=== PATIENT | male | born 1945 | race Caucasian/White ===

== ENCOUNTER → 2016-08-24 | Day surgery (SDC) | payer OTHER, MEDICARE ==
[~2016-08-24] VITALS: Ht 180.3 cm; Wt 80.7 kg
[~2016-08-24] MED LIST: /PANT40TA OR; ACET65TA PR; ACETYLCHOLINE OPHTH SOLN 1% 2ML As Ordered ONE; ACULAR 0.5% OD; AMLO10TA2 PO; AMLO5TAB OR; BSS with VANC/TOB/EPI for EYE CASES IR ONE; CHLO125TA PO; CHLO25TA PO; CIPR500S PO; COMB0.2S OD; CYCLOPENTOLATE 2% OPHTH SOLN As Ordered ONE; CYCLOPENTOLATE 2% OPHTH SOLN OD ONE; D5W/0.2% SODIUM CHLORIDE 250 ML IV ONE; DICY10EL OR; FLAG500T PO; FLOM5CAP PO; GAS-X PO; HEALON DUET (HEALON 10MG/ML 0.55ML & HEALON ENDOCOAT 30MG/ML 0.85ML) As Ordered ONE; IMODIUM PO; LATA5OPD OU; LIDOCAINE 4% INJ 5 ML AMP OU ONE; LOSA100T36 PO; LOSARTAN/HCTZ PO; MAGN250T11 PO; MIDAZOLAM INJ 2 MG/2 ML VIAL (J2250) As Ordered ONE; NORV5TAB OR; OCUVTAB PO; OFLOXACIN 0.3 % (OCUFLOX) OPTH SOL 5ML As Ordered ONE; OFLOXACIN 0.3 % (OCUFLOX) OPTH SOL 5ML OD ONE; PANT40TA2 PO; PHENYLEPHRINE 2.5% OPHTH SOL 2ML As Ordered ONE; PHENYLEPHRINE 2.5% OPHTH SOL 2ML OD ONE; POTA10TA16 PO; POVIDONE-IODINE 5% OPHTH PREP SOL 30ML As Ordered ONE; PRAV40TA2 PO; PREDFORTE OD; SERT50TA2 OR; SIMV40TA2 OR; SLOWTAB OR; TAMS0.4C2 PO; TOBRAMYCIN INJ 80 MG/2 ML VIAL (J3260) As Ordered ONE; TROPICAMIDE 1% OPHTH SOLN 2 ML As Ordered ONE; TROPICAMIDE 1% OPHTH SOLN 2 ML OD ONE; VITA20002 PO; fentaNYL 100 MCG/2 ML INJECTION (J3010) As Ordered ONE; glaucoma drop OU
[2016-08-24 09:00] VITALS: BP 114/62
--- NOTE | 2016-08-24 10:22 | RO ---
DATE: 08/24/2016 PREPROCEDURE DIAGNOSIS: Glaucoma, right eye. POSTPROCEDURE DIAGNOSIS: Glaucoma, right eye. PROCEDURE: Endocytophotocoagulation, right eye. SURGEON: Theresa Barrera MD MILK TANKER DRIVER: None. ANESTHESIA: COMPLICATIONS: None. DESCRIPTION OF PROCEDURE: Patient was brought to the operating room, laid in supine position. The eye was prepped and draped in a sterile fashion for opthalmic surgery, following which a lid speculum was placed. A sideport incision was made and EndoCoat and Healon were injected into the anterior chamber to visualize the ciliary processes and in the ciliary sulcus. A temporal clear corneal incision was then made with a 2.5 mm keratome. With the help of the EndoProbe on the videoscreen, the ciliary processes were identified and endocyclophotocoagulation was then done 0.25 milliwatts for 280 degrees with good results noted by the shrinkage of the ciliary processes. The probe was removed. Viscoelastic was aspirated. The wound was hydrated. Moxifloxacin was given. No leaks were noted. Lid speculum removed and patient returned to recovery room in stable condition.
== END | disposition home or self-care (01) ==
LOC: M SDC 06:43
PROVIDERS: ATTEND Ophthalmology
DX: H40.10X0 Unspecified open-angle glaucoma, stage unspecified (principal); I10 Essential (primary) hypertension; E78.5 Hyperlipidemia, unspecified; J44.9 Chronic obstructive pulmonary disease, unspecified; Z87.891 Personal history of nicotine dependence; Z79.899 Other long term (current) drug therapy
CPT/HCPCS: 66711; J2250; J3010

== ENCOUNTER → 2016-10-21 | Outpatient (CLI) | payer OTHER, MEDICARE ==
[~2016-10-21] MED LIST changes: -ACETYLCHOLINE OPHTH SOLN 1% 2ML As Ordered ONE; -BSS with VANC/TOB/EPI for EYE CASES IR ONE; -CYCLOPENTOLATE 2% OPHTH SOLN As Ordered ONE; -CYCLOPENTOLATE 2% OPHTH SOLN OD ONE; -D5W/0.2% SODIUM CHLORIDE 250 ML IV ONE; -HEALON DUET (HEALON 10MG/ML 0.55ML & HEALON ENDOCOAT 30MG/ML 0.85ML) As Ordered ONE; -LIDOCAINE 4% INJ 5 ML AMP OU ONE; -MIDAZOLAM INJ 2 MG/2 ML VIAL (J2250) As Ordered ONE; -OFLOXACIN 0.3 % (OCUFLOX) OPTH SOL 5ML As Ordered ONE; -OFLOXACIN 0.3 % (OCUFLOX) OPTH SOL 5ML OD ONE; -PHENYLEPHRINE 2.5% OPHTH SOL 2ML As Ordered ONE; -PHENYLEPHRINE 2.5% OPHTH SOL 2ML OD ONE; -POVIDONE-IODINE 5% OPHTH PREP SOL 30ML As Ordered ONE; -TOBRAMYCIN INJ 80 MG/2 ML VIAL (J3260) As Ordered ONE; -TROPICAMIDE 1% OPHTH SOLN 2 ML As Ordered ONE; -TROPICAMIDE 1% OPHTH SOLN 2 ML OD ONE; -fentaNYL 100 MCG/2 ML INJECTION (J3010) As Ordered ONE
--- NOTE | 2016-10-27 12:37 | REP ---
Thyroid ultrasound: Comparison is 12/07/2015. The thyroid gland is upper normal size. The right lobe measures 4.3 x 1.7 x 1.5 cm. Left lobe measures 4.0 by 2.0 x 120 cm. The isthmus measures 2.5 mm thickness. These measurements are slightly larger than previously but in the normal range. The study is technically difficult because of the thyroid gland very low behind the manubrium. Right lobe: There are three focal lesions in the right lobe. There is a 5.4 mm upper pole cyst. This was 6.2 mm previously). There is a 2.8 mm mid pole nodule (2.8 mm previously). There is a 1.9 mm mid pole nodule (not present previously). On the prior study there was 2.7 mm lower pole nodule, not identified today. Left lobe: There are two tiny upper pole nodules, one measuring 3.8 mm and in the 2.2 mm, not present previously. There is a mid pole nodule measuring 6.7 mm. This was 9.6 mm previously. There is a lower pole 3.8 mm nodule, 5.0 mm previously. There is a lower pole 10.3 mm nodule, 8.7 mm previously. The thyroid parenchyma is otherwise diffusely mildly heterogeneous. Impression: Multiple bilateral thyroid nodules and cysts as described. Signed by Santiago Daniels MD 10/27/2016 12:28 P
== END ==
LOC: M RAD 12:14
PROVIDERS: ATTEND Otolaryngology
DX: R94.6 Abnormal results of thyroid function studies (principal)

== ENCOUNTER → 2017-01-24 | Outpatient (CLI) | payer OTHER, MEDICARE ==
[2017-01-24 12:15] LABS: MEAN CORPUSCULAR HEMOGLOBIN 30.7 pg (27.0-33.0); MEAN CORPUSCULAR HGB CONC 33.6 g/dl (32.0-36.5); MEAN CORPUSCULAR VOLUME 91.6 fl (80.0-96.0); PLATELET COUNT, AUTOMATED 302 10^3/uL (150-450); RED CELL DISTRIBUTION WIDTH 12.9 % (11.5-14.5)
[2017-01-24 12:16] LABS: ADD MANUAL DIFFER YES; DIFF SLIDE NUMBER 137
[2017-01-24 12:48] LABS: ALBUMIN 3.5 GM/DL (3.2-5.2); ALBUMIN/GLOBULIN RATIO 1.06 (1.00-1.93); ALKALINE PHOSPHATASE 73 U/L (45-117); ALT/SGPT 16 U/L (12-78); ANION GAP 5 MEQ/L (8-16); AST/SGOT 14 U/L (15-37); BILIRUBIN,TOTAL 0.5 MG/DL (0.2-1.0); BLOOD UREA NITROGEN 19 MG/DL (7-18); CALCIUM LEVEL 8.9 MG/DL (8.8-10.2); CARBON DIOXIDE LEVEL 34 MEQ/L (21-32); CHLORIDE LEVEL 102 MEQ/L (98-107); CHOLESTEROL LEVEL 175 MG/DL (<200); CREATININE FOR GFR 0.87 MG/DL (0.70-1.30); GLOMERULAR FILTRATION RATE > 60.0 (>42); GLUCOSE, FASTING 101 MG/DL (83-110); POTASSIUM SERUM 4.1 MEQ/L (3.5-5.1); SODIUM LEVEL 141 MEQ/L (136-145); TOTAL PROTEIN 6.8 GM/DL (6.4-8.2); TRIGLYCERIDES LEVEL 65 MG/DL (<150)
[2017-01-24 13:19] LABS: EOSINOPHILS 1 % (0-5)
== END ==
LOC: M LRY 09:06
PROVIDERS: ATTEND Family Medicine
DX: E87.6 Hypokalemia (principal); I10 Essential (primary) hypertension; E78.5 Hyperlipidemia, unspecified

== ENCOUNTER 2017-03-14 07:20 | Observation (INO) | payer OTHER, MEDICARE ==
[~2017-03-14] VITALS: Ht 180.3 cm; Wt 84.3 kg
[2017-03-14] MEDS ORDERED: COMB0.2S OD (07:42)
[2017-03-14] MEDS ORDERED: ESCI5SOL3 PO (07:42)
[2017-03-14] MEDS ORDERED: NS 1,000 ML IV SCH (08:01)
[2017-03-14] MEDS ORDERED: ONDANSETRON 4MG/2ML VIAL (J2405) IV ONE (08:15)
[2017-03-14 08:24] LABS: MEAN CORPUSCULAR HEMOGLOBIN 31.2 pg (27.0-33.0); MEAN CORPUSCULAR HGB CONC 35.1 g/dl (32.0-36.5); PLATELET COUNT, AUTOMATED 274 10^3/uL (150-450); RED CELL DISTRIBUTION WIDTH 12.6 % (11.5-14.5); WHITE BLOOD COUNT 13.9 10^3/uL (4.0-10.0)
[2017-03-14 08:37] LABS: ADD MANUAL DIFFER YES; ADD MORPHOLOGY? YES; BLASTS POS FLAG; DIFF SLIDE NUMBER 142; LEFT SHIFT POS FLAG; POSITIVE MORPH POS FLAG
[2017-03-14 08:43] LABS: ALBUMIN/GLOBULIN RATIO 0.79 (1.00-1.93); ALKALINE PHOSPHATASE 72 U/L (45-117); ALT/SGPT 11 U/L (12-78); ANION GAP 7 MEQ/L (8-16); AST/SGOT 8 U/L (7-37); BILIRUBIN,DIRECT 0.2 MG/DL (0.0-0.2); BILIRUBIN,TOTAL 0.7 MG/DL (0.2-1.0); BLOOD UREA NITROGEN 24 MG/DL (7-18); CALCIUM LEVEL 8.6 MG/DL (8.8-10.2); CARBON DIOXIDE LEVEL 30 MEQ/L (21-32); CHLORIDE LEVEL 99 MEQ/L (98-107); CREATININE FOR GFR 1.16 MG/DL (0.70-1.30); GLOMERULAR FILTRATION RATE > 60.0 (>42); GLUCOSE, FASTING 134 MG/DL (83-110); POTASSIUM SERUM 2.8 MEQ/L (3.5-5.1); SODIUM LEVEL 136 MEQ/L (136-145); TOTAL PROTEIN 6.8 GM/DL (6.4-8.2)
[2017-03-14] MEDS ORDERED: POTASSIUM CHLORIDE 10 MEQ SR TABLET PO ONE ×2 (09:00→18:00)
--- NOTE | 2017-03-14 09:09 | REP ---
Clinical: Acute abdominal pain. Comparison: 10/14/2014. Technique: Upright view of the chest with supine and upright views of the abdomen and pelvis. Findings: Frontal upright view of the chest demonstrates COPD/emphysematous changes with large bullae encompassing the right mid to upper lung zone and bilateral chronic interstitial changes. No acute cardiopulmonary process or free air below the diaphragm to suspect pneumoperitoneum. Supine and upright views of the abdomen and pelvis demonstrate nonspecific bowel gas pattern without obstruction or perforation. No organomegaly. No abnormal calcifications. Skeletal structures normal for age. Impression: Frontal chest demonstrates chronic interstitial changes and COPD. Nonspecific bowel gas pattern. Signed by Camilo Licea MD 03/14/2017 09:00 A
[2017-03-14] MEDS ORDERED: GASTROGRAFIN SOLUTION 30ML (Q9963) PO ONE ×2 (09:25→09:55)
[2017-03-14] MEDS ORDERED: ISOVUE-370 76% 100ML VIAL (Q9967) As Ordered ONE (10:36)
[2017-03-14] MEDS ORDERED: methylPREDNISolone INJ 125 MG/2 ML VIAL (J2930) IV ONE (10:45)
[2017-03-14] MEDS ORDERED: diphenhydrAMINE INJ 50MG/ML VIAL (J1200) IV ONE (10:45)
[2017-03-14] MEDS ORDERED: FAMOTIDINE INJ 20MG/2ML VIAL (S0028) IVP ONE (10:45)
--- NOTE | 2017-03-14 11:18 | REP ---
Clinical: Diffuse acute abdominal pain. Comparison: 10/14/2014. Findings: Mural thickening and perienteric inflammatory changes are identified involving the jejunum along with associated mesenteric adenopathy (images 63 - 110). Findings suggest acute enteritis and correlation/follow-up may be warranted as differential diagnosis may include further pathology including lymphoma and inflammatory bowel disease. Stable 2.5 cm right hepatic cyst. Spleen, pancreas, and left adrenal gland are normal. Stable 2 cm right adrenal adenoma again identified. Kidneys demonstrate chronic symmetric perinephric stranding and bilateral hypodensities suggesting cysts and similar to prior examination. No hydroureteronephrosis or obstructing calculi identified. The patient is status post cholecystectomy. Pelvis demonstrates normal bladder and enlarged prostate gland measuring 5.4 cm maximal transverse diameter. No ascites. No free air. No retroperitoneal adenopathy. Atherosclerotic changes to the aorta and vasculature noted without aortic aneurysm. Focal dilatation to the right common iliac artery remains stable and measures 2 cm maximal diameter. Musculoskeletal structures demonstrate osteopenia and degenerative changes without focal osseous abnormality. Lung bases demonstrate stable chronic fibrosis and interstitial disease. Visualized portions of the heart and pericardium are relatively normal. Impression: 1. Prominence to the jejunum with mural thickening, perienteric stranding and mesenteric lymph nodes. Differential diagnosis includes acute enteritis as well as inflammatory bowel disease and lymphoma. 2. Chronic stable findings including hepatic cyst, right adrenal adenoma, bilateral renal cysts and enlarged prostate gland. Signed by Camilo Licea MD 03/14/2017 11:10 A
--- NOTE | 2017-03-14 13:42 | HPEPDOC ---
[facility] Medical History & Physical Date of Admission Mar 14, 2017 History and Physical ATTENDING: Dr. Waters PCP: Dr Bain CC: Abdominal pain HPI: 71 yo M with a past medical history significant for hypertension, dyslipidemia, GERD, COPD and CLL who states he has been experiencing abdominal pain since last . He reports diarrhea, nausea, vomiting, subjective fever and chills. He has not been able to eat well the past 2 days, he has been trying to drink fluids. Denies any weakness, fatigue, NUNEZ, CP, SOB, cough, palpitations, or changes in bladder habits. Upon presentation to the hospital the patient was found to have abdominal pain, thus the hospitalist team was consulted. PMHx: Hypertension. Follows with ED History of thyroid nodules. Follows with Dr. Chun. GERD Dyslipidemia Glaucoma Macular degeneration BPH Depression COPD History of CLL. Previously followed by Dr. Whitehead. Hypomagnesemia PSHX: Left great toe amputation Cholecystectomy 02/06 EGD/colonoscopy. Dr. Leonardo SOCHX: Resides in: [facility] Marital Status: Kids: 2 Employment: Retired Tobacco use: Quit 6 years ago ETOH: Denies Illicit Drugs: Denies Recent travel: Denies Advanced directives: None FAMHX: Siblings: One twin sister Alive, well Children: Alive, depression, alcohol use Unexpected deaths due to medical reasons: None. ROS: As noted in HPI, otherwise 11pt ROS of systems reviewed and unremarkable. PE: GEN: 71 yoM, appears stated age. Well-nourished, well developed. No acute distress. Alert and oriented x 3. Pleasant, interactive. HEENT: Normocephalic, atraumatic. Pupils are equal, round, and reactive to light. Extraocular movements are intact. No nystagmus appreciated. Sclera are nonicteric. Conjunctiva without injection. Nose midline. EACs both patent BL. No facial asymmetry. Moist mucous membranes. Upper and lower dentures. Pharynx pink and moist, no cobblestoning. Neck supple, trachea midline. No lymphadenopathy or thyromegaly appreciated. CHEST: Regular rate and rhythm, +S1, +S2 LUNGS: Clear to auscultation bilaterally. No wheezes, rales, or rhonchi. Breathing appears symmetric and easy. Patient is speaking in full sentences. No accessory muscle use. ABD: Round, soft, non-tender, non-distended. +Bowel sounds throughout. No rebound or guarding. No costovertebral angle tenderness. EXT: Pulses 2+ bilaterally dorsalis pedis and radial. No lower extremity edema appreciated. SKIN: [place], dry, warm. Capillary refill <2sec. No rashes. NEURO: Alert and oriented x 3. Cranial nerves III-XII are intact. No focal deficits appreciated. AXR: Frontal chest demonstrates chronic interstitial changes and COPD. Nonspecific bowel gas pattern. CT: Abdomen and pelvis 1. Prominence to the jejunum with mural thickening, perienteric stranding and mesenteric lymph nodes. Differential diagnosis includes acute enteritis as well as inflammatory bowel disease and lymphoma. 2. Chronic stable findings including hepatic cyst, right adrenal adenoma, bilateral renal cysts and enlarged prostate gland. A&P: 71 yo M with a past medical history significant for hypertension, dyslipidemia, GERD, COPD and CLL who states he has been experiencing abdominal pain since last . He reports diarrhea, nausea, vomiting, subjective fever and chills. He has not been able to eat well the past 2 days, he has been trying to drink fluids. 1. The patient will be admitted to / for at least [address] Waters's service. Pt is discussed with Dr Grewal. 2. Abdominal pain, nausea, vomiting, diarrhea. Possible enteritis. IV fluids at 100 mL per hour. GI panel pending. Blood cultures pending. Clear liquids. Plan is to hold off antibiotics for now. 3. Hypokalemia. Status post supplementation in the emergency department. Recheck BMP, supplement further if needed. 4. Hypomagnesemia. Patient remains on supplement. Check magnesium level. 5. Hypertension. Hold chlorthalidone. Continue losartan with hold parameters. 5. Dyslipidemia. Continue Pravachol. 6. GERD. Continue PPI. 7. Glaucoma. Continue outpatient regimen of eyedrops. 8. BPH. Continue Flomax. 9. Depression. Continue Lexapro. 10. History of CLL. DVT prophylaxis. The patient is a full code. MED REC PENDING AT THIS TIME. Vital Signs Vital Signs Date Time Temp Pulse Resp B/P (MAP) Pulse Ox O2 Delivery O2 Flow Rate FiO2 03/14/17 12:35 98.7 89 18 148/70 (96) 90 03/14/17 07:20 Room Air Laboratory Data Labs 24H Laboratory Tests 2 03/14/17 08:10: Nucleated Red Blood Cells % (auto) 0.0, Neutrophils 51, Lymphocytes (Manual) 47 , Monocytes (Manual) 2, Platelet Estimate NORMAL, Red Blood Cell Morphology NORMAL, Anion Gap 7L, Glomerular Filtration Rate > 60.0, Lactic Acid Level 1.1, Calcium Level 8.6L, Aspartate Amino Transf (AST/SGOT) 8, Alanine Aminotransferase (ALT/SGPT) 11L, Alkaline Phosphatase 72, Total Bilirubin 0.7, Direct Bilirubin 0.2, Total Protein 6.8, Albumin 3.0L, Albumin/Globulin Ratio 0.79L, Lipase 107 CBC/BMP Laboratory Tests 03/14/17 08:10 Red Blood Count 4.45, Mean Corpuscular Volume 89.0, Mean Corpuscular Hemoglobin 31.2, Mean Corpuscular Hemoglobin Concent 35.1, Red Cell Distribution Width 12.6 Home Medications Scheduled (Combigan 0.2-0.5 %) 1 Kyara Kyara, 1 DROP OD BID (Magnesium Oxide) 400 Mg Cap, 400 MG PO DAILY Aspirin (Aspirin 81) 81 Mg Tab, 81 MG PO DAILY Chlorthalidone (Chlorthalidone) 12.5 Mg Halftab, 12.5 MG PO DAILY [place] Dextrin (Fiber Powder) 1 Pow Pow, 1 TBS PO DAILY Cyanocobalamin (Vitamin B-12 Tr) 2,000 Mcg Tab, 2,000 MCG PO DAILY Escitalopram Oxalate (Lexapro) 5 Mg Tab, 10 MG PO DAILY Losartan Potassium (Losartan Potassium) 100 Mg Tab, 100 MG PO DAILY Magnesium Oxide (Magnesium Oxide) 250 Mg Tab, 250 MG PO DAILY Multivitamins (Ocuvite) 1 Tab Tab, 1 TAB PO DAILY Pantoprazole Sodium (Pantoprazole Sodium) 40 Mg Tab, 40 MG PO DAILY Potassium Chloride (Potassium Chloride ER) 10 Meq Tab, 20 MEQ PO DAILY Potassium Chloride (K-Tab) 10 Meq Tab, 20 MEQ PO DAILY Pravastatin Sod (Pravastatin Sodium) 40 Mg Tab, 40 MG PO DAILY Tamsulosin Hydrochloride (Flomax) 0.4 Mg Cap, 0.4 MG PO QPM Scheduled PRN Ondansetron HCl (Zofran) 4 Mg Tab, 4 MG PO Q8HP PRN for NAUSEA OR VOMITING Allergies Coded Allergies: Valsartan (Verified Adverse Reaction, Mild, EXCESSIVE FATIGUE, 08/24/16) Selina Gupta Mar 14, 2017 13:41
[2017-03-14] MEDS ORDERED: ONDANSETRON 4MG/2ML VIAL (J2405) IV PRN (14:00)
[2017-03-14] MEDS ORDERED: ACETAMINOPHEN TAB 650MG DOSE (2X325MG) PO PRN (14:00)
[2017-03-14] MEDS ORDERED: LEXA5TAB13 PO (14:55)
[2017-03-14] MEDS ORDERED: FIBEPOW11 PO (14:55)
[2017-03-14] MEDS ORDERED: ASPI1TAB PO (14:55)
[2017-03-14] MEDS: PANTOPRAZOLE 40MG TAB (PROTONIX) PO SCH (16:10)
[2017-03-14] MEDS: POTASSIUM CHLORIDE 10 MEQ SR TABLET PO SCH (16:10)
[2017-03-14] MEDS: LOSARTAN 50 MG TAB PO SCH (16:11)
[2017-03-14] MEDS: ASPIRIN 81 MG ENTERIC TAB PO SCH (16:11)
[2017-03-14 17:24] LABS: ANION GAP 8 MEQ/L (8-16); BLOOD UREA NITROGEN 25 MG/DL (7-18); CALCIUM LEVEL 8.1 MG/DL (8.8-10.2); CARBON DIOXIDE LEVEL 27 MEQ/L (21-32); CHLORIDE LEVEL 103 MEQ/L (98-107); CREATININE FOR GFR 0.98 MG/DL (0.70-1.30); GLOMERULAR FILTRATION RATE > 60.0 (>42); GLUCOSE, FASTING 163 MG/DL (83-110); MAGNESIUM LEVEL 1.3 MG/DL (1.8-2.4); POTASSIUM SERUM 2.9 MEQ/L (3.5-5.1); SODIUM LEVEL 138 MEQ/L (136-145)
[2017-03-14 17:40] VITALS: BP 142/67
[2017-03-14] MEDS: ENOXAPARIN 40 MG/0.4 ML SYRINGE (J1650) SC SCH (18:15)
[2017-03-14] MEDS: OCUVITE 1 TAB PO SCH (18:17)
[2017-03-14] MEDS: KCL 10MEQ IN 100ML SWI (KRUN) 10 MEQ in APPROPRIATE DILUENT 1 EA IV SCH ×4 (18:17→19:26)
[2017-03-14] MEDS: ESCITALOPRAM OXALATE 10 MG TAB (LEXAPRO) PO SCH (18:30)
[2017-03-14] MEDS: NS 1,000 ML IV SCH ×2 (18:30→19:26)
[2017-03-14 20:00] VITALS: BP 128/70
[2017-03-14] MEDS: COMBIGAN OPTH OU SCH (20:37)
[2017-03-14] MEDS: PRAVASTATIN 20 MG TAB PO SCH (20:38)
[2017-03-14] MEDS: MAG SULF 1GM/100ML (MAG RUN) 1 GM in APPROPRIATE DILUENT 1 EA IV SCH ×2 (20:38→21:43)
[2017-03-14] MEDS: TAMSULOSIN 0.4 MG CAP PO SCH (20:38)
[2017-03-15] VITALS: BP 124/64
[2017-03-15] MEDS: NS 1,000 ML IV SCH ×2 (06:49→18:29)
[2017-03-15 06:56] LABS: MEAN CORPUSCULAR HEMOGLOBIN 30.3 pg (27.0-33.0); MEAN CORPUSCULAR HGB CONC 33.9 g/dl (32.0-36.5); MEAN CORPUSCULAR VOLUME 89.3 fl (80.0-96.0); PLATELET COUNT, AUTOMATED 261 10^3/uL (150-450); RED CELL DISTRIBUTION WIDTH 12.8 % (11.5-14.5); WHITE BLOOD COUNT 13.6 10^3/uL (4.0-10.0)
[2017-03-15 07:04] LABS: ADD MANUAL DIFFER YES; BLASTS POS FLAG; DIFF SLIDE NUMBER 82; POSITIVE MORPH POS FLAG
[2017-03-15 07:14] LABS: ALBUMIN 2.4 GM/DL (3.2-5.2); ALBUMIN/GLOBULIN RATIO 0.75 (1.00-1.93); ALKALINE PHOSPHATASE 52 U/L (45-117); ALT/SGPT 12 U/L (12-78); ANION GAP 5 MEQ/L (8-16); AST/SGOT 9 U/L (7-37); BILIRUBIN,TOTAL 0.3 MG/DL (0.2-1.0); BLOOD UREA NITROGEN 21 MG/DL (7-18); CALCIUM LEVEL 8.3 MG/DL (8.8-10.2); CARBON DIOXIDE LEVEL 28 MEQ/L (21-32); CHLORIDE LEVEL 106 MEQ/L (98-107); CREATININE FOR GFR 0.82 MG/DL (0.70-1.30); GLOMERULAR FILTRATION RATE > 60.0 (>42); GLUCOSE, FASTING 143 MG/DL (83-110); MAGNESIUM LEVEL 1.9 MG/DL (1.8-2.4); POTASSIUM SERUM 3.3 MEQ/L (3.5-5.1); SODIUM LEVEL 139 MEQ/L (136-145); TOTAL PROTEIN 5.6 GM/DL (6.4-8.2)
[2017-03-15 08:00] VITALS: BP 110/60
[2017-03-15] MEDS: ENOXAPARIN 40 MG/0.4 ML SYRINGE (J1650) SC SCH (10:16)
[2017-03-15] MEDS: LOSARTAN 50 MG TAB PO SCH (10:17)
[2017-03-15] MEDS: OCUVITE 1 TAB PO SCH (10:17)
[2017-03-15] MEDS: PANTOPRAZOLE 40MG TAB (PROTONIX) PO SCH (10:17)
[2017-03-15] MEDS: ASPIRIN 81 MG ENTERIC TAB PO SCH (10:17)
[2017-03-15] MEDS: ESCITALOPRAM OXALATE 10 MG TAB (LEXAPRO) PO SCH (10:18)
[2017-03-15] MEDS: POTASSIUM CHLORIDE 10 MEQ SR TABLET PO SCH (10:18)
[2017-03-15] MEDS: COMBIGAN OPTH OU SCH ×2 (10:19→20:00)
[2017-03-15 14:00] VITALS: BP 110/60
[2017-03-15 16:54] VITALS: BP 140/89
--- NOTE | 2017-03-15 17:59 | IPN ---
DATE: 03/15/2017 SUBJECTIVE: The patient is seen and examined in the room today. Per patient, his nausea and vomiting is improving. Still has frequent bowel movements, otherwise he feels he is improving significantly. OBJECTIVE: VITAL SIGNS: Temperature 98.6, pulse 72, respirations 20, blood pressure is 110/60, pulse oximetry is 95% on room air. GENERAL: No sign of acute distress. Alert and oriented times three. HEENT: Normocephalic, atraumatic. Extraocular muscles intact. CARDIOVASCULAR: Positive S1, S2. Regular rate. LUNGS: Clear to auscultation bilaterally. ABDOMEN: Soft, nontender, nondistended. Bowel sounds present. EXTREMITIES: No edema. No sign of cyanosis. LABORATORY DATA: WBC is 13.6, hemoglobin 11.3, hematocrit 34.2, platelet count is 261. Sodium is 139, potassium 3.3, chloride is 106, carbon dioxide 28, BUN 21, creatinine 0.82, GFR is greater than 60, fasting glucose 143, calcium 8.3, magnesium 1.9, total bilirubin 0.3, AST 9, ALT 12, alkaline phosphatase 52, total protein is 5.6, albumin 2.4. ASSESSMENT AND PLAN: 1. Abdominal pain with nausea, vomiting, diarrhea. Gastrointestinal panel is ordered, unfortunately we do not have a sample at this moment. Continue conservative management. The patient is on IV fluid. Nausea and vomiting is improving. Based on the history and the patient's presentation, the patient possibly has a viral gastroenteritis. Continue conservative medical management. If the patient continues to remain stable, may consider discharging the patient tomorrow. 2. Hypertension. The patient's blood pressure is in the satisfactory range. The patient is taking Cozaar 100 mg by mouth daily. 3. Chronic obstructive pulmonary disease (COPD). Currently does not have exacerbation, continue to monitor. 4. Gastroesophageal reflux disease (GERD). On Protonix by mouth daily. 5. Dyslipidemia. On Pravastatin. 6. History of chronic lymphocytic leukemia. Previously the patient was followed by Dr. Whitehead and now the patient has routine monitoring by the [facility] and primary care provider, Dr. Clemente Bain. 7. Depression. Lexapro. 8. History of thyroid nodules. Followup with Dr. Chun. 9. Hypokalemia, most likely secondary to current GI loss. Continue with supplements. 10. Hypomagnesemia. Resolved. 11. Deep vein thrombosis (DVT) prophylaxis. Lovenox.
[2017-03-15 20:00] VITALS: BP 143/71
[2017-03-15] MEDS: PRAVASTATIN 20 MG TAB PO SCH (20:00)
[2017-03-15] MEDS: TAMSULOSIN 0.4 MG CAP PO SCH (20:00)
[2017-03-16] VITALS: BP 120/59
[2017-03-16] MEDS: NS 1,000 ML IV SCH (03:10)
[2017-03-16 07:03] LABS: MEAN CORPUSCULAR HEMOGLOBIN 30.8 pg (27.0-33.0); MEAN CORPUSCULAR HGB CONC 33.6 g/dl (32.0-36.5); MEAN CORPUSCULAR VOLUME 91.6 fl (80.0-96.0); PLATELET COUNT, AUTOMATED 255 10^3/uL (150-450); RED CELL DISTRIBUTION WIDTH 13.3 % (11.5-14.5); WHITE BLOOD COUNT 10.7 10^3/uL (4.0-10.0)
[2017-03-16 07:07] LABS: ADD MANUAL DIFFER YES; BLASTS POS FLAG; DIFF SLIDE NUMBER 53; POSITIVE DIFF POS FLAG; POSITIVE MORPH POS FLAG
[2017-03-16 07:34] LABS: EOSINOPHILS 1 % (0-5)
[2017-03-16 07:44] LABS: ALBUMIN 2.2 GM/DL (3.2-5.2); ALBUMIN/GLOBULIN RATIO 0.76 (1.00-1.93); ALKALINE PHOSPHATASE 46 U/L (45-117); ALT/SGPT 11 U/L (12-78); ANION GAP 3 MEQ/L (8-16); AST/SGOT 8 U/L (7-37); BILIRUBIN,TOTAL 0.4 MG/DL (0.2-1.0); BLOOD UREA NITROGEN 16 MG/DL (7-18); CALCIUM LEVEL 8.1 MG/DL (8.8-10.2); CARBON DIOXIDE LEVEL 32 MEQ/L (21-32); CHLORIDE LEVEL 108 MEQ/L (98-107); CREATININE FOR GFR 0.85 MG/DL (0.70-1.30); GLOMERULAR FILTRATION RATE > 60.0 (>42); GLUCOSE, FASTING 91 MG/DL (83-110); MAGNESIUM LEVEL 1.6 MG/DL (1.8-2.4); POTASSIUM SERUM 3.4 MEQ/L (3.5-5.1); SODIUM LEVEL 143 MEQ/L (136-145); TOTAL PROTEIN 5.1 GM/DL (6.4-8.2)
[2017-03-16 08:00] VITALS: BP 138/63
[2017-03-16] MEDS: COMBIGAN OPTH OU SCH (09:09)
[2017-03-16] MEDS: POTASSIUM CHLORIDE 10 MEQ SR TABLET PO SCH (09:10)
[2017-03-16] MEDS: ENOXAPARIN 40 MG/0.4 ML SYRINGE (J1650) SC SCH (09:10)
[2017-03-16] MEDS: OCUVITE 1 TAB PO SCH (09:10)
[2017-03-16 09:11] VITALS: BP 138/63
[2017-03-16] MEDS: LOSARTAN 50 MG TAB PO SCH (09:11)
[2017-03-16] MEDS: ESCITALOPRAM OXALATE 10 MG TAB (LEXAPRO) PO SCH (09:11)
[2017-03-16] MEDS: PANTOPRAZOLE 40MG TAB (PROTONIX) PO SCH (09:11)
[2017-03-16] MEDS: ASPIRIN 81 MG ENTERIC TAB PO SCH (09:11)
[2017-03-16] MEDS ORDERED: MAGN400C3 PO (11:23)
[2017-03-16] MEDS ORDERED: ZOFR20TA PO (11:26)
[2017-03-16] MEDS ORDERED: K-TA10TA2 PO (11:26)
[2017-03-16] MEDS ORDERED: POTASSIUM CHLORIDE 10 MEQ SR TABLET PO ONE (12:00)
[2017-03-16] MEDS ORDERED: MAGNESIUM OXIDE 400 MG TAB (MAG-OX) PO ONE (12:00)
--- NOTE | 2017-03-16 18:13 | DSES ---
DATE OF ADMISSION: 03/14/2017 DATE OF DISCHARGE: 03/16/2017 PRIMARY CARE PROVIDER: Dr. Bain CONSULTANTS: None. PROCEDURE: None. DISCHARGE DIAGNOSES: 1. Abdominal pain with nausea, vomiting, and diarrhea. 2. Hypertension. 3. Chronic obstructive pulmonary disease. 4. Gastroesophageal reflux disease. 5. Dyslipidemia, on statin. 6. Chronic lymphocytic leukemia. 7. Depression. 8. History of thyroid nodule. 9. Hypothyroidism. 10. Hypomagnesemia. HOSPITALIZATION COURSE: Patient is a 71-year-old male who presented to [facility] on 03/14/2017 for severe abdominal pain with nausea, vomiting, and diarrhea. Imaging study was performed. It showed patient has prominence to the jejunum with mural thickening, perienteric stranding, and mesenteric lymph node. Differential included acute enteritis and inflammatory bowel disease and lymphoma. The patient continued with symptomatic management, and gastrointestinal (GI) panel was ordered; however, we were not able to obtain the test results until a few days later. With conservative medical management, patient did show gradual and continuous improvement. On 03/16/2017, patient had almost complete resolution of the symptoms, and patient determined stable for discharge with recommendation to follow with primary care provider in 1-2 weeks. VITAL SIGNS: Temperature is 98.7, pulse is 76, respirations 18, blood pressure is 138/63, pulse oximetry is 95% in room air. LABORATORY DATA: On the day of discharge, WBC 10.7, hemoglobin 11.3, hematocrit 33.6, platelet count is 255. Sodium is 143, potassium 3.4, chloride is 108, carbon dioxide 32, BUN 16, creatinine 0.85, GFR greater than 60, fasting glucose is 91, calcium is 8.1, magnesium 1.6. Total bilirubin 0.4, AST 8, ALT 11, alkaline phosphatase is 46, total protein is 5.1, albumin 2.2. Microbiology: Blood cultures are negative after 48 hours. Official report pending. Urine culture is negative. GI panel on 03/16/2017 is negative. IMAGING STUDY: On 03/14/2017 shows prominence to the jejunum with mural thickening and perienteric stranding and mesenteric lymph nodes. Differential diagnoses included acute enteritis as well as inflammatory bowel disease and lymphoma. DISCHARGE MEDICATIONS: - magnesium oxide 400 mg by mouth daily for 5-day supply - Zofran 4 mg p every 8 hours as needed for nausea and vomiting - potassium chloride 20 mEq by mouth daily - aspirin 81 mg by mouth daily - chlorthalidone 12.5 mg by mouth daily - Combigan one drop right eye twice a day - vitamin B12 at 2000 mcg by mouth daily - Lexapro 10 mg by mouth daily - losartan 100 mg by mouth daily - magnesium oxide 250 mg by mouth daily - multivitamin one tablet by mouth daily - pantoprazole 40 mg by mouth daily - pravastatin 40 mg by mouth daily - Flomax 0.4 mg by mouth every evening DISCHARGE INSTRUCTIONS: Discontinue line. Discharge home. Activity as tolerated. Low-salt diet as tolerated. Patient should followup with primary care provider in 1-2 weeks. DISCHARGE CONDITION: Stable. DISCHARGE TIME: Greater than 30 minutes.
== END 2017-03-16 13:35 | disposition home or self-care (01) ==
LOC: M ED 07:20 → M ED INP 14:48 → M PED 18:04
PROVIDERS: ADMIT Internal Medicine; ATTEND Internal Medicine
DX: R10.9 Unspecified abdominal pain (principal); R11.2 Nausea with vomiting, unspecified; R19.7 Diarrhea, unspecified; J44.9 Chronic obstructive pulmonary disease, unspecified; K21.9 Gastro-esophageal reflux disease without esophagitis; E83.42 Hypomagnesemia; E87.6 Hypokalemia; E78.4 Other hyperlipidemia; E03.9 Hypothyroidism, unspecified; E04.1 Nontoxic single thyroid nodule; F32.9 Major depressive disorder, single episode, unspecified; C91.10 Chronic lymphocytic leukemia of B-cell type not having achieved remission; N40.0 Benign prostatic hyperplasia without lower urinary tract symptoms; H40.9 Unspecified glaucoma; Z79.899 Other long term (current) drug therapy; Z79.82 Long term (current) use of aspirin; Z87.891 Personal history of nicotine dependence
CPT/HCPCS: 36415; 74022; 74176; 80048; 80053; 80076; 81001; 83605; 83690; 83735; 85025; 87040; 87086; 87507; 93041; 96361; 96372; 96374; 96375; 99285; J1200; J1650; J2405; J2930; J3475; Q9963

== ENCOUNTER → 2017-07-22 | Outpatient (CLI) | payer OTHER, MEDICARE ==
[2017-07-22 12:21] LABS: BASO % 0.4 % (0.0-1.0); EOS # 0.2 10^3/uL (0.0-0.50); IMMATURE GRANULOCYTE % 0.4 % (0-3.0); LYMPH # 4.1 10^3/uL (1.5-4.5); LYMPH % 39.9 % (24.0-44.0); MEAN CORPUSCULAR HEMOGLOBIN 30.2 pg (27.0-33.0); MEAN CORPUSCULAR HGB CONC 33.3 g/dl (32.0-36.5); MEAN CORPUSCULAR VOLUME 90.7 fl (80.0-96.0); MONO # 0.9 10^3/uL (0.0-0.8); MONO % 8.4 % (0.0-5.0); NEUTROPHILS % 48.9 % (36.0-66.0); PLATELET COUNT, AUTOMATED 285 10^3/uL (150-450); RED BLOOD COUNT 4.96 10^6/uL (4.30-6.10); RED CELL DISTRIBUTION WIDTH 12.9 % (11.5-14.5); WHITE BLOOD COUNT 10.2 10^3/uL (4.0-10.0)
[2017-07-22 12:37] LABS: ALBUMIN 3.5 GM/DL (3.2-5.2); ALBUMIN/GLOBULIN RATIO 1.03 (1.00-1.93); ALKALINE PHOSPHATASE 76 U/L (45-117); ALT/SGPT 12 U/L (12-78); ANION GAP 6 MEQ/L (8-16); AST/SGOT 12 U/L (7-37); BILIRUBIN,TOTAL 0.5 MG/DL (0.2-1.0); BLOOD UREA NITROGEN 21 MG/DL (7-18); CALCIUM LEVEL 8.9 MG/DL (8.8-10.2); CARBON DIOXIDE LEVEL 32 MEQ/L (21-32); CHLORIDE LEVEL 105 MEQ/L (98-107); CHOLESTEROL LEVEL 192 MG/DL (<200); CHOLESTEROL RISK RATIO 4.363 (<5); CREATININE FOR GFR 0.94 MG/DL (0.70-1.30); GLOMERULAR FILTRATION RATE > 60.0 (>42); GLUCOSE, FASTING 100 MG/DL (70-100); HDL CHOLESTEROL 44 MG/DL (>40); LDL CHOLESTEROL 130.6 MG/DL (<100); NON-HDL-C 148 MG/DL; POTASSIUM SERUM 4.3 MEQ/L (3.5-5.1); SODIUM LEVEL 143 MEQ/L (136-145); TOTAL PROTEIN 6.9 GM/DL (6.4-8.2); TRIGLYCERIDES LEVEL 87 MG/DL (<150)
== END ==
LOC: M LRY 09:17
DX: E78.5 Hyperlipidemia, unspecified (principal); I10 Essential (primary) hypertension; R53.83 Other fatigue
CPT/HCPCS: 84443

== ENCOUNTER → 2017-10-11 | Outpatient (CLI) | payer OTHER, MEDICARE | LOC: M RAD 09:43 | DX: E04.2 Nontoxic multinodular goiter (principal) | CPT/HCPCS: 76536 ==

== ENCOUNTER → 2017-12-22 | Outpatient (CLI) | payer MEDICARE, OTHER ==
[~2017-12-22] MED LIST changes: -/PANT40TA OR; -ACET65TA PR; -ACULAR 0.5% OD; -AMLO10TA2 PO; -AMLO5TAB OR; -CHLO125TA PO; -CHLO25TA PO; -CIPR500S PO; -COMB0.2S OD; -DICY10EL OR; -FLAG500T PO; -FLOM5CAP PO; -GAS-X PO; -IMODIUM PO; -LATA5OPD OU; +LIDOCAINE 1% MDV 20ML VIAL As Ordered; -LOSA100T36 PO; -LOSARTAN/HCTZ PO; -MAGN250T11 PO; -NORV5TAB OR; -OCUVTAB PO; -PANT40TA2 PO; -POTA10TA16 PO; -PRAV40TA2 PO; -PREDFORTE OD; -SERT50TA2 OR; -SIMV40TA2 OR; -SLOWTAB OR; -TAMS0.4C2 PO; -VITA20002 PO; -glaucoma drop OU
== END ==
LOC: M RADPRO 08:23
DX: E04.2 Nontoxic multinodular goiter (principal); Z79.899 Other long term (current) drug therapy; Z88.8 Allergy status to other drugs, medicaments and biological substances
CPT/HCPCS: 10022

== ENCOUNTER → 2018-07-05 | Outpatient (CLI) | payer MEDICARE, OTHER ==
[~2018-07-05] MED LIST changes: +/PANT40TA OR; +ACET65TA PR; +ACULAR 0.5% OD; +AMLO10TA5 PO; +AMLO5TAB OR; +ASPI1TAB PO; +CHLO125TA PO; +CHLO25TA PO; +CIPR500S PO; +COMB0.2S OD; +DICY10EL OR; +ESCI5SOL3 PO; +FIBEPOW11 PO; +FLAG500T PO; +FLOM0.4C39 PO; +GAS-X PO; +IMODIUM PO; +K-TA10TA2 PO; +LATA5OPD OU; +LEXA5TAB13 PO; -LIDOCAINE 1% MDV 20ML VIAL As Ordered; +LOSA100T50 PO; +LOSARTAN/HCTZ PO; +MAGN250T11 PO; +MAGN400C3 PO; +NORV5TAB OR; +OCUVTAB PO; +PANT40TA3 PO; +POTA10TA16 PO; +PRAV40TA2 PO; +PREDFORTE OD; +SERT50TA2 OR; +SIMV40TA2 OR; +SLOWTAB OR; +TAMS0.4C2 PO; +VITA20002 PO; +ZOFR4TAB16 PO; +glaucoma drop OU
--- NOTE | 2018-07-05 18:38 | REP ---
Thyroid ultrasound: Comparison is 10/11/2017. Multinodular nontoxic goiter: The right lobe measures 4.0 1.9 x 1.6 cm. The left lobe measures 4.1 x 1.5 x 1.8 cm. The isthmus is 4.8 mm thickness. The thyroid is upper normal size and is not significantly changed from prior study. Right lobe: There is an upper lobe hypoechoic nodule measuring 4 x 3 x 3 mm. Half This previously measured 3.5 x 2.6 x 4.1 mm and has not significantly changed. There is another upper pole hypoechoic nodule measuring 2 x 1 x 2 mm. This previously measured 3 x 3 x 3 mm and has not significantly changed. There is a hypoechoic lower pole nodule today measuring 5 x 3 x 3 mm. This previously measured 5 x 2.4 x 3.8 mm and has not significantly changed. There are multiple other tiny nodules throughout the right lobe, not significantly changed. Left lobe: At the mid pole. There is a complex 1.4 x 0.8 x 1.6 cm nodule. This previously measured 1.5 by 0.8 by 1.2 cm. There is not significantly changed. At the lower pole. There is an isoechoic nodule measuring 1.0 x 0.7 x 0.8 cm. This previously measured 1.3 x 0.8 by 1.1 cm and is not significantly changed. At the lower pole. There is a hypoechoic nodule measuring 0.5 x 0.3 x 0.6 cm. This previously measured 0.3 x 0.2 x 0.4 cm and has not significantly changed. In the lower pole medially near the isthmus there is a new hypoechoic nodule measuring 0.3 x 0.3 x 0.5 cm. There are multiple other small nodules throughout the left lobe as previously. Impression: There are multiple thyroid nodules as described. There is a new nodule medially pole of the thyroid left lobe measuring up to 0.5 cm. All of the other nodules are not significantly changed. In addition there are numerous tiny nodules throughout both lobes of the thyroid. This is unchanged. Electronically Signed by Santiago Daniels MD 07/05/2018 06:29 P
== END ==
LOC: M RAD 10:37
PROVIDERS: ATTEND Otolaryngology
DX: E04.2 Nontoxic multinodular goiter (principal)

== ENCOUNTER → 2018-07-17 | Outpatient (CLI) | payer MEDICARE, OTHER ==
[2018-07-17 17:30] LABS: BLOOD UREA NITROGEN 23 MG/DL (7-18); CALCIUM LEVEL 8.6 MG/DL (8.8-10.2); CARBON DIOXIDE LEVEL 32 MEQ/L (21-32); CHLORIDE LEVEL 102 MEQ/L (98-107); CREATININE FOR GFR 0.91 MG/DL (0.70-1.30); GLOMERULAR FILTRATION RATE > 60.0 (>42); GLUCOSE, FASTING 87 MG/DL (70-100); POTASSIUM SERUM 4.2 MEQ/L (3.5-5.1); SODIUM LEVEL 140 MEQ/L (136-145)
== END ==
LOC: M LRY 11:15
PROVIDERS: ATTEND Family Medicine
DX: I11.9 Hypertensive heart disease without heart failure (principal)

== ENCOUNTER → 2018-10-02 | Outpatient (REF) | payer MEDICARE, OTHER ==
[~2018-10-02] MED LIST changes: -/PANT40TA OR; -ASPI1TAB PO; +ASPI81TA26 PO; -CHLO25TA PO; +LATA0.0013 OU; -LATA5OPD OU; +PROT1TAB2 OR
[2018-10-02 16:24] LABS: BASO % 0.4 % (0.0-1.0); EOS # 0.3 10^3/uL (0.0-0.50); EOS % 3.1 % (0.0-3.0); HEMATOCRIT 43.6 % (42.0-52.0); LYMPH % 33.4 % (24.0-44.0); MEAN CORPUSCULAR HEMOGLOBIN 30.1 pg (27.0-33.0); MEAN CORPUSCULAR HGB CONC 32.1 g/dl (32.0-36.5); MEAN CORPUSCULAR VOLUME 93.8 fl (80.0-96.0); MONO # 0.9 10^3/uL (0.0-0.8); MONO % 9.4 % (0.0-5.0); NEUTROPHILS # 4.8 10^3/uL (1.8-7.7); NEUTROPHILS % 53.4 % (36.0-66.0); PLATELET COUNT, AUTOMATED 298 10^3/uL (150-450); RED BLOOD COUNT 4.65 10^6/uL (4.30-6.10)
[2018-10-02 16:33] LABS: ALT/SGPT 15 U/L (12-78); BILIRUBIN,TOTAL 0.2 MG/DL (0.2-1.0); BLOOD UREA NITROGEN 26 MG/DL (7-18); CALCIUM LEVEL 8.2 MG/DL (8.8-10.2); CARBON DIOXIDE LEVEL 31 MEQ/L (21-32); CHLORIDE LEVEL 106 MEQ/L (98-107); CHOLESTEROL LEVEL 163 MG/DL (<200); CREATININE FOR GFR 1.01 MG/DL (0.70-1.30); GLOMERULAR FILTRATION RATE > 60.0 (>42); GLUCOSE, FASTING 88 MG/DL (70-100); HDL CHOLESTEROL 42 MG/DL (>40); LDL CHOLESTEROL 103 MG/DL (<100); NON-HDL-C 121 MG/DL; POTASSIUM SERUM 4.4 MEQ/L (3.5-5.1); SODIUM LEVEL 142 MEQ/L (136-145); TOTAL PROTEIN 6.3 GM/DL (6.4-8.2); TRIGLYCERIDES LEVEL 89 MG/DL (<150)
== END ==
LOC: M LABDRAW1 15:28
PROVIDERS: ATTEND Family Medicine
DX: D64.9 Anemia, unspecified (principal); E78.5 Hyperlipidemia, unspecified; I10 Essential (primary) hypertension

== ENCOUNTER → 2019-01-15 | Outpatient (CLI) | payer MEDICARE, OTHER ==
[~2019-01-15] MED LIST changes: +LIDOCAINE 2% INJ 100 MG/5 ML SDV (FOR ANES.) As Ordered ONE; +PROPOFOL 200 MG/20 ML VIAL As Ordered ONE
--- NOTE | 2019-01-15 14:15 | REP ---
THYROID ULTRASOUND: Real-time sonographic of the thyroid performed and compared to a prior study of 07/05/2018. Right lobe measures 3.3 x 1.6 x 1.2 cm and left lobe 3.4 x 1.9 x 1.4 cm. Echotexture is diffusely heterogeneous. A dominant nodule in the right upper pole is stable measuring 4 mm and another in the right lower pole is stable measuring 5 x 3 x 4 mm. There is an ill-defined heterogeneous nodule in the left upper pole which measures 8 x 7 x 9 mm. On the prior study there were cystic components which are no longer visualized. Otherwise the nodule is unchanged. A nodule in the left lower pole measures 12 x 11 x 9 mm and is grossly unchanged. IMPRESSION: Bilateral nodules appear essentially unchanged except for a nodule in the left upper pole which demonstrates less cystic changes than on the prior study of 07/05/2018. Electronically Signed by Santiago Chavez MD 01/16/2019 09:56 A
== END ==
LOC: M RAD 12:34
PROVIDERS: ATTEND Otolaryngology
DX: E04.2 Nontoxic multinodular goiter (principal)

== ENCOUNTER → 2019-04-09 | Outpatient (REF) | payer MEDICARE, OTHER ==
[~2019-04-09] MED LIST changes: -LIDOCAINE 2% INJ 100 MG/5 ML SDV (FOR ANES.) As Ordered ONE; -PROPOFOL 200 MG/20 ML VIAL As Ordered ONE
[2019-04-09 12:32] LABS: ALBUMIN 3.1 GM/DL (3.2-5.2); ALT/SGPT 13 U/L (12-78); BILIRUBIN,TOTAL 0.4 MG/DL (0.2-1.0); BLOOD UREA NITROGEN 19 MG/DL (7-18); CALCIUM LEVEL 8.6 MG/DL (8.8-10.2); CARBON DIOXIDE LEVEL 33 MEQ/L (21-32); CHLORIDE LEVEL 103 MEQ/L (98-107); CHOLESTEROL LEVEL 185 MG/DL (<200); CHOLESTEROL RISK RATIO 4.021 (<5); CREATININE FOR GFR 0.99 MG/DL (0.70-1.30); GLOMERULAR FILTRATION RATE > 60.0 (>42); GLUCOSE, FASTING 99 MG/DL (70-100); HDL CHOLESTEROL 46 MG/DL (>40); LDL CHOLESTEROL 124 MG/DL (<100); MAGNESIUM LEVEL 1.9 MG/DL (1.8-2.4); NON-HDL-C 139 MG/DL; POTASSIUM SERUM 4.8 MEQ/L (3.5-5.1); SODIUM LEVEL 141 MEQ/L (136-145); TOTAL PROTEIN 6.4 GM/DL (6.4-8.2); TRIGLYCERIDES LEVEL 75 MG/DL (<150)
== END ==
LOC: M LABDRAW1 09:13
PROVIDERS: ATTEND Family Medicine
DX: I10 Essential (primary) hypertension (principal); E78.5 Hyperlipidemia, unspecified; R53.83 Other fatigue; E83.42 Hypomagnesemia

== ENCOUNTER → 2020-10-02 | Outpatient (CLI) | payer MEDICARE, OTHER ==
[~2020-10-02] MED LIST changes: -AMLO10TA5 PO; +AMLO1TAB25 PO; +PANT40TA29 PO; -PANT40TA3 PO
--- NOTE | 2020-10-02 11:29 | REP ---
INDICATION: SCREENING AAA. COMPARISON: None. TECHNIQUE: Real-time sonographic evaluation of the abdominal aorta performed. FINDINGS: There is no sonographic evidence of abdominal aortic aneurysm. Maximum AP diameter of abdominal aorta: Proximal (at diaphragm):2.4 cm. At renal artery level: 2.3 cm Mid abdominal aorta:1.8 cm. Distal abdominal aorta (prebifurcation): 1.9 cm. Maximum AP diameter common iliac arteries: Right: 17 mm. Left: 11mm. IMPRESSION: No sonographic evidence of abdominal aortic aneurysm. <Electronically signed by Santiago Chavez > 10/02/20 [id number]
== END ==
LOC: M RAD 08:35
PROVIDERS: ATTEND Family Medicine
DX: F17.211 Nicotine dependence, cigarettes, in remission (principal)

== ENCOUNTER → 2021-03-26 | Outpatient (CLI) | payer MEDICARE, OTHER ==
[~2021-03-26] MED LIST changes: +LOSA100T45 PO; -LOSA100T50 PO; +LOSA25TA13 PO; +OCUVTAB4 PO; +POTA-149 PO; -POTA10TA16 PO; +TRUS1SOL OD; +XALA0.007 OU
== END ==
LOC: M LABSMTC 09:17
PROVIDERS: ATTEND Anesthesiology
DX: Z01.812 Encounter for preprocedural laboratory examination (principal); Z20.822 Contact with and (suspected) exposure to COVID-19

== ENCOUNTER 2021-03-31 07:54 | Day surgery (SDC) | payer MEDICARE, OTHER ==
[~2021-03-31] VITALS: Ht 180.3 cm; Wt 84.4 kg
[~2021-03-31 07:54] MED LIST changes: -LOSA100T45 PO; +LOSA100T50 PO; -LOSA25TA13 PO; +LOSA25TA14 PO; +NS 1,000 ML IV ONE; -POTA-149 PO; +POTA10TA16 PO
--- OUTSIDE RECORDS SUMMARY | 2021-03-31 07:59 | CCD ---
Continuity of Care Document (CCD) Created on: 02/11/2021 Jr Magaña External Reference #: [id number] : [id number] Sex: Male Author Author rJ BRYANT M.D. Organization Unknown Address [address] [address] Phone [phone] Care Team Providers Care Pharmacy Intake Technician Name Role Phone Clemente Bryant MD [facility] [phone] Problems Active Problems Provider Date Pericardial effusion Onset: 02/08/2011 Benign prostatic hyperplasia Onset: 07/24 Blood in urine Onset: 07/09/2010 Mixed hyperlipidemia Onset: 12/27/2007 Tobacco dependence syndrome Onset: 12/26 Depressive disorder Onset: 12/17/2007 Benign essential hypertension Onset: Gastroesophageal reflux disease Onset: 0 Mixed anxiety and depressive disorder On set: Chronic obstructive lung disease Onset: Male erectile disorder Onset: Aortic valve stenosis Onset: Social History Type Date Description Comments Sex Unknown ETOH Use Rarely consumes alcohol Tobacco Use Start: Unknown End: Unknown Patient is a former smoker 1 ppd since age 14 quit when he was 65 Allergies and adverse reactions Active Allergies Criticality Reaction | Severity Comments Date Diovan Unable to assess criticality Mild 03/03/2011 Inactive Allergies NKDA Unable to assess criticality 10/24/2014 Medications Active Medications SIG Qnty Indications Ordering Provide r Date Omeprazole 20mg Capsules DR 1 by mouth every day 90caps Clemente Bryant M.D. 11/09/2019 Preservision Areds 2 Areds 2 Capsules Clemente Bryant M.D. 10/13/2018 Aspirin Adult Low Dose 81mg Tablet s DR 1 by mouth every day 30tabs Clemente Bryant M.D. 10/14/19 19 Escitalopram Oxalate 5mg Tablets 2 by mouth every day 180tabs Clemente Bryant M.D. 10/08/2016 Travatan Z 0.004% Solution 1 drop both eyes every night at bedtime Clemente Bryant M.D. 10/08/2016 Potassium Chloride ER 10Meq Tablet s ER 1 by mouth twice a day Clemente Bryant M.D. 2014 Magnesium 250mg Tablets 1 by mouth every day Clemente Bryant M.D. 01/01/2015 Chlorthalidone 25mg Tablets 1/2 tab by mouth every day 45tabs MELANIE Sanderson 10/24/2014 Pravastatin Sodium 40mg Tablets 1 by mouth every day Unknown Tamsulosin HCL 0.4mg Capsules 2 daily 1/2 hour after same meal Unknown Combigan 0.2-0.5% Solution Calli Watson JR, MD Losartan Potassium 25mg Tablets 1 by mouth every day 90tabs Clemente Bryant M.D. Dorzolamide HCL 2% Solution both eyes 1 drop twice a day Unknown Administration Of Flu Vaccine Inj ection Unknown Immunizations CPT Code Status Date Vaccine Lot # U-Flu Given 01/21/2021 Influenza,Unspecified U-Flu Given 01/18/2020 Influenza,Unspecified 88252 Given 02/08/2017 Influenza Vaccin e Quadrivalent Preser/Antibiotic Free Im Use [id number] Q2037 Given 02/25/2016 Fluvirin Virus Vaccine 27111 01 U-Pneum Given 10/16/2014 Pneumococcal,Unspecified 52334 Given 02/09/2013 Influenza Virus Vaccine 08678 Given 02/02/2012 Influenza Virus Vaccine 80765 Given 12/24/2010 Influenza Virus Vaccine 79919 Given 2010 Pneumovax 23 46611 Given 01/27/2010 Influenza Virus Vaccine 47255 Given 07/15/2004 Adacel- Tetanus Diphtheria P ertussis Vital Signs Date Vital Result Comment 02/02/2021 3:04pm BP Systolic 128 mmHg BP Diastolic 74 mmHg Heart Rate 72 /min Height 70 inches 5'10" Weight 190.00 lb BMI (Body Mass Index) 27.3 kg/m2 09/16/2020 12:54pm BP Systolic 110 mmHg BP Diastolic 60 mmHg Heart Rate 71 /min Height 70 inches 5'10" Weight 191.12 lb O2 % BldC Oximetry 96 % RM Air BMI (Body Mass Index) 27.4 kg/m2 Results Test Acquired Date Facility Test Result H/L Range Note Complete Blood Count 02/02/2021 [facility] nadege humphries Vp Digital Marketing: Dr Bill Amaya [place], [place] [id number] [phone] WBC 8.9 x10*3/UL 4.1 - 10.9 RBC 4.92 x10*6/UL 4.20 - 6.30 Hemoglobin 15.2 g/dL 12.0 - 18.0 Hematocrit 44.2 % 37.0 - 51.0 MCV 89.9 fL 80.0 - 97.0 MCH 30.9 pg 26.0 - 32.0 MCHC 34.4 g/dL 31.0 - 38.0 RDW 13.3 % 11.6 - 13.7 PLT 295 x10*3/UL 140 - 440 MPV 7.8 FL 7.8 - 11.0 Lymph % 32.0 % 10.0 - 58.5 Mid % 8.1 % 1.7 - 9.3 Neut % 59.9 % 37.0 - 92.0 Lymph # 2.8 x10*3/UL 0.6 - 4.1 Mid # 0.8 x10*3/UL High 0.1 - 0.6 Neut # 5.3 x10*3/UL 2.0 - 7.8 Comprehensive Chem Profile 02/02/2021 [facility] nadege So V[facility] Digital Marketing: Dr Bill Amaya [place] [id number] [phone] Glucose 101 mg/dL High 74 - 99 1 BUN 18 mg/dL 7 - 18 Creatinine 1.1 mg/dL 0.6 - 1.3 Sodium 139 mEq/L 136 - 145 Potassium 3.4 mEq/L Low 3.5 - 5.1 2 Chloride 103 mEq/L 98 - 107 Carbon Dioxide 33 mEq/L High 21 - 32 Calcium 8.5 mg/dL 8.5 - 10.1 Alk. Phosphatase 82 mg/dL 46 - 116 Total Bilirubin 0.4 mg/dL 0.2 - 1.0 Ast (Sgot) 16 U/L 15 - 37 Alt (SGPT) 21 U/L 12 - 78 Albumin 3.0 g/dL Low 3.4 - 5.0 Total Protein 6.9 g/dL 6.4 - 8.2 A/G Ratio 0.77 CALC Low 1.00 - 1.90 GFR >= 60 mL/min >60 GFR >= 60 mL/min >60 3 Lipid Profile 02/02/2021 [facility] , Vp Digital Marketing: Dr Bill Amaya [place] [id number] [phone] Cholesterol 160 mg/dL 131 - 200 Triglycerides 44 mg/dL 30 - 150 HDL Cholesterol 46 mg/dL 35 - 60 LDL (Calculated) 105 CALC 50 - 159 Laboratory test finding 02/02/2021 [facility] [employer] isradha, Vp Digital Marketing: Dr Bill Amaya [place] [id number] [phone] PSA 2.92 ng/mL <4.00 4 Laboratory test finding 09/16/2020 [facility] sherine, Vp Digital Marketing: [place] [address] [phone] Vitamin D 25-Hydroxy 32.6 ng/ml 24.0 - 80.0 5 Complete Blood Count 09/16/2020 [facility] Vp Digital Marketing: [place] [address] [phone] WBC 8.6 x10*3/UL 4.1 - 10.9 RBC 4.84 x10*6/UL 4.20 - 6.30 Hemoglobin 14.6 g/dL 12.0 - 18.0 Hematocrit 43.8 % 37.0 - 51.0 MCV 90.4 fL 80.0 - 97.0 MCH 30.2 pg 26.0 - 32.0 MCHC 33.4 g/dL 31.0 - 38.0 RDW 13.1 % 11.6 - 13.7 PLT 292 x10*3/UL 140 - 440 MPV 8.5 FL 7.8 - 11.0 Lymph % 31.7 % 10.0 - 58.5 Mid % 7.4 % 1.7 - 9.3 Neut % 60.9 % 37.0 - 92.0 Lymph # 2.7 x10*3/UL 0.6 - 4.1 Mid # 0.7 x10*3/UL High 0.1 - 0.6 Neut # 5.2 x10*3/UL 2.0 - 7.8 Comprehensive Chem Profile 09/16/2020 [facility], Vp Digital Marketing: [place] [address] [phone] Glucose 98 mg/dL 74 - 99 6 BUN 23 mg/dL High 7 - 18 Creatinine 1.0 mg/dL 0.6 - 1.3 Sodium 138 mEq/L 136 - 145 Potassium 3.9 mEq/L 3.5 - 5.1 Chloride 101 mEq/L 98 - 107 Carbon Dioxide 31 mEq/L 21 - 32 Calcium 8.9 mg/dL 8.5 - 10.1 Alk. Phosphatase 78 mg/dL 46 - 116 Total Bilirubin 0.4 mg/dL 0.2 - 1.0 Ast (Sgot) 15 U/L 15 - 37 Alt (SGPT) 22 U/L 12 - 78 Albumin 3.5 g/dL 3.4 - 5.0 Total Protein 6.6 g/dL 6.4 - 8.2 A/G Ratio 1.13 CALC 1.00 - 1.90 GFR >= 60 mL/min >60 GFR >= 60 mL/min >60 7 Lipid Profile 09/16/2020 [facility] , Vp Digital Marketing: [place] [address] [phone] Cholesterol 166 mg/dL 131 - 200 Triglycerides 70 mg/dL 30 - 150 HDL Cholesterol 47 mg/dL 35 - 60 LDL (Calculated) 105 CALC 50 - 159 1 100-125 mg/dL PRE-DIABET ES/FASTING >126 mg/dL DIABETES/FASTING 2 NOTE: RESULT VERIFIED. 3 CHRONIC KIDNEY DISEASE STAGI NG PER NKF STAGE I & II GFR >= 60 NORMAL TO MILDLY DECREASED STAGE III GFR 30-59 MODERATELY DECREASED STAGE IV GFR 15-29 SEVERELY DECREASED STAGE V GFR <15 VERY LITTLE GFR LEFT ESRD GFR <15 ON DRUG ABUSE WORKER 4 This assay was performed on the [employer] EX[employer] using the B- Galactosidase/CPRG methodology and should not be compared interchangeably with other methods. The PSA should not be used alone as a screening test for the presence or absence of malignant disease. 5 This test was performed [employer] Vitamin D immunoassay kit. Values obtained with different assay methods should not be used interchangeably. 6 100-125 mg/dL PRE-DIABET ES/FASTING >126 mg/dL DIABETES/FASTING 7 CHRONIC KIDNEY DISEASE STAGI NG PER NKF STAGE I & II GFR >= 60 NORMAL TO MILDLY DECREASED STAGE III GFR 30-59 MODERATELY DECREASED STAGE IV GFR 15-29 SEVERELY DECREASED STAGE V GFR <15 VERY LITTLE GFR LEFT ESRD GFR <15 ON DRUG ABUSE WORKER Procedures Date Code Description Status 02/02/2021 97358 Office/Outpatient Established Mo d MDM 30-39 Min Completed 01/01/2021 [id number] Diabetic Retinal Eye Exam Comple brissa 09/16/2020 89278 Office/Outpatient Established Mo d MDM 30-39 Min Completed 07/03/2020 [id number] Diabetic Retinal Eye Exam Comple brissa 12/29/2018 718243486 Diabetic Retinal Eye Exam Comple brissa 09/13/2018 844092713 Diabetic Retinal Eye Exam Comple brissa 08/17/2018 558513239 Diabetic Retinal Eye Exam Comple brissa 11/23/2017 863731576 Diabetic Retinal Eye Exam Comple brissa 09/01/2015 526191368 Diabetic Retinal Eye Exam Comple brissa 12/05/2014 [id number] Colonoscopy Completed 10/22/2011 [id number] Colonoscopy Completed Medical Devices Description No Information Available Encounters Type Date Location Provider Dx Diagnosis Office Visit 02/02/2021 3:00p [facility] M.[facility] I10 Essential (primary) hypertension E78.5 Hyperlipidemia, unspecified K21.9 Gastro-esophageal reflux dis ease without esophagitis J44.9 Chronic obstructive pulmonar y disease, unspecified N40.0 Benign prostatic hyperplasia without lower urinry tract symp F41.9 Anxiety disorder, unspecifie d C91.11 Chronic lymphocytic leukemia of B-cell type in remission E55.9 Vitamin D deficiency, unspec ified H40.9 Unspecified glaucoma Z12.5 Encounter for screening for malignant neoplasm of prostate Office Visit 09/16/2020 1:30p [facility] M.D. E78.5 Hyperlipidemia, unspecified I10 Essential (primary) hyperten rah K21.9 Gastro-esophageal reflux dis ease without esophagitis J44.9 Chronic obstructive pulmonar y disease, unspecified N40.0 Benign prostatic hyperplasia without lower urinry tract symp F41.9 Anxiety disorder, unspecifie d C91.11 Chronic lymphocytic leukemia of B-cell type in remission E55.9 Vitamin D deficiency, unspec ified H40.9 Unspecified glaucoma Assessments Date Code Description Provider 02/02/2021 I10 Essential (primary) hypertension Clemente Bryant M.D. 02/02/2021 E78.5 Hyperlipidemia, unspecified Mehnaz Bryant M.D. 02/02/2021 K21.9 Gastro-esophageal reflux disease without esophagitis Clemente Bryant M.D. 02/02/2021 J44.9 Chronic obstructive pulmonary di sease, unspecified Clemente Bryant M.D. 02/02/2021 N40.0 Benign prostatic hyperplasia wit hout lower urinary tract sym Clemente Bryant M.D. 02/02/2021 F41.9 Anxiety disorder, unspecified Gadiel Bryant M.D. 02/02/2021 C91.11 Chronic lymphocytic leukemia of B-cell type in remission Clemente Bryant M.D. 02/02/2021 E55.9 Vitamin D deficiency, unspecifie d Clemente Bryant M.D. 02/02/2021 H40.9 Unspecified glaucoma Clemente rod M.D. 02/02/2021 Z12.5 Encounter for screening for jaspreet gnant neoplasm of prostate Clemente Bryant M.D. 09/16/2020 E78.5 Hyperlipidemia, unspecified Mehnaz Bryant M.D. 09/16/2020 I10 Essential (primary) hypertension Clemente Bryant M.D. 09/16/2020 K21.9 Gastro-esophageal reflux disease without esophagitis Clemente Bryant M.D. 09/16/2020 J44.9 Chronic obstructive pulmonary di sease, unspecified Clemente Bryant M.D. 09/16/2020 N40.0 Benign prostatic hyperplasia wit hout lower urinary tract sym Clemente Bryant M.D. 09/16/2020 F41.9 Anxiety disorder, unspecified Gadiel Bryant M.D. 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 09/16/2020 E55.9 Vitamin D deficiency, unspecifie d Clemente Bryant M.D. 09/16/2020 H40.9 Unspecified glaucoma Clemente rod M.D. Plan of Treatment Future Appointment(s):* 08/05/2021 9:30 am - [facility] 02/02/2021 - Clemente Bryant M.D.* I10 Essential (primary) hypertension * E78.5 Hyperlipidemia, unspecified * K21.9 Gastro-esophageal reflux disease without esophagitis * J44.9 Chronic obstructive pulmonary disease, unspecified * N40.0 Benign prostatic hyperplasia without lower urinry tract symp * F41.9 Anxiety disorder, unspecified * C91.11 Chronic lymphocytic leukemia of B-cell type in remission * E55.9 Vitamin D deficiency, unspecified * H40.9 Unspecified glaucoma * Z12.5 Encounter for screening for malignant neoplasm of prostate * * Comments:* 1. Hypertension: Well controlled on present regimen, will continue and monitor.2. Hyperlipidemia: Good results on current regimen, will continue and monitor.3. Gastro-esophageal reflux disease without esophagitis: Good results with PPI daily and will continue.4. COPD: Stable. We will continue to monitor.5. Benign prostatic hyperplasia without lower urinry tract symp: Good results on Flomax, will continue and monitor. He will follow up with PSA results.6. Anxiety disorder: Doing well on Lexapro, will continue and monitor.7. Chronic lymphocytic leukemia of B-cell type in remission: Generally normal CBC. He is not interested in following up Hem- Onc. We will continue to monitor.8. Vitamin D deficiency: Normal level when checked in August 2020. Patient is well supplemented, will continue and monitor. 9. Glaucoma: Patient is following up with Dr. Kat for significantly decreased vision due to macular degeneration and will also follow up with Dr. Perkins for glaucoma. Continue current regimen. We will continue to monitor.Ongoing cares: Next colonoscopy is planned in March 2021. Patient is encouraged to take potassium supplement twice daily for low potassium level. I am going to see him again in 6 months with CMP, CBC, lipids and carl das. If he has new problems or issues sooner he will let us know. Functional Status Description No Information Available Mental Status Description No Information Available Referrals Description No Information Available
--- OUTSIDE RECORDS SUMMARY | 2021-03-31 07:59 | CCD | Continuity of Care Document ---
Author Author Jr BRYANT M.D. Organization Unknown Address [address] [address] Phone [phone] Care Team Providers Care Fresh Foods Technician Name Role Phone Clemente Bryant MD [facility] [phone] Problems Active Problems Provider Date Pericardial effusion [...] 11/09/2019 Preservision Areds 2 Areds 2 Capsules Celmente Bryant M.D. 10/13/2018 Aspirin Adult Low Dose [...] Given 01/21/2021 Influenza,Unspecified U-Flu Given 01/18/2020 Influenza,Unspecified 98696 Given 02/08/2017 Influenza Vaccin e Quadrivalent Preser/Antibiotic Free Im Use [id number] Q2037 Given 02/25/2016 Fluvirin Virus Vaccine 39677 01 U-Pneum Given 10/16/2014 Pneumococcal,Unspecified 36842 Given 02/09/2013 Influenza Virus Vaccine 18279 Given 02/02/2012 Influenza Virus Vaccine 84661 Given 12/24/2010 Influenza Virus Vaccine 11492 Given 2010 Pneumovax 23 86839 Given 01/27/2010 Influenza Virus Vaccine 04841 Given 07/15/2004 Adacel- Tetanus Diphtheria P ertussis [...] H/L Range Note Complete Blood Count 02/02/2021 [facility] [employer] nadege humphries Assignment Clerk: Dr Bill Amaya [place], [place] [id number] [phone] WBC 8.9 x10*3/UL 4.1 - 10.9 RBC [...] 2.0 - 7.8 Comprehensive Chem Profile 02/02/2021 [facility] nadege So Assignment Clerk: Dr Bill Amaya [place] [id number] [phone] Glucose 101 mg/dL High 74 - 99 [...] 60 mL/min >60 3 Lipid Profile 02/02/2021 [facility] , Assignment Clerk: Dr Bill Amaya [place] [id number] [phone] Cholesterol 160 mg/dL 131 - 200 Triglycerides 44 mg/dL 30 - 150 HDL Cholesterol 46 mg/dL 35 - 60 LDL (Calculated) 105 CALC 50 - 159 Laboratory test finding 02/02/2021 [facility] [employer] isradha, Assignment Clerk: Dr Bill Amaya [place] [id number] [phone] PSA <pending> Laboratory test finding 09/16/2020 [facility] sherine, Assignment Clerk: Dr Bill Amaya [place] [id number] [phone] Vitamin D 25-Hydroxy 32.6 ng/ml 24.0 - 80.0 4 Complete Blood Count 09/16/2020 [facility] Assignment Clerk: [place] [address] [phone] WBC 8.6 x10*3/UL 4.1 - 10.9 RBC [...] 2.0 - 7.8 Comprehensive Chem Profile 09/16/2020 [facility] ernnadege basurto Assignment Clerk: [place] [address] [phone] Glucose 98 mg/dL 74 - 99 5 BUN 23 mg/dL High 7 - 18 [...] mL/min >60 GFR >= 60 mL/min >60 6 Lipid Profile 09/16/2020 [facility] , nadege Assignment Clerk: [place] [address] [phone] Cholesterol 166 mg/dL 131 - 200 Triglycerides [...] LITTLE GFR LEFT ESRD GFR <15 ON UNIT CLERK 4 This test was performed [employer] Vitamin D immunoassay kit. Values obtained with different assay methods should not be used interchangeably. 5 100-125 mg/dL PRE-DIABET ES/FASTING >126 mg/dL DIABETES/FASTING 6 CHRONIC KIDNEY DISEASE STAGI NG PER NKF STAGE I & II GFR >= 60 NORMAL TO MILDLY DECREASED STAGE III GFR 30-59 MODERATELY DECREASED STAGE IV GFR 15-29 SEVERELY DECREASED STAGE V GFR <15 VERY LITTLE GFR LEFT ESRD GFR <15 ON UNIT CLERK Procedures Date Code Description Status 01/01/2021 [id number] Diabetic Retinal Eye Exam Comple brissa 09/16/2020 31920 Office/Outpatient Established Mo d MDM 30-39 Min Completed 07/03/2020 [id number] Diabetic Retinal Eye Exam Comple brissa 12/29/2018 350159115 Diabetic Retinal Eye Exam Comple brissa 09/13/2018 958691855 Diabetic Retinal Eye Exam Comple brissa 08/17/2018 114744933 Diabetic Retinal Eye Exam Comple brissa 11/23/2017 942964955 Diabetic Retinal Eye Exam Comple brissa 09/01/2015 093619075 Diabetic Retinal Eye Exam Comple brissa 12/05/2014 [id number] Colonoscopy Completed 10/22/2011 [id number] Colonoscopy Completed Medical Devices Description No Information Available Encounters Type Date Location Provider Dx Diagnosis Office Visit 09/16/2020 1:30p [facility] Clemente Bryant M.D. E78.5 Hyperlipidemia, unspecified I10 Essential (primary) hyperten rah K21.9 Gastro-esophageal reflux dis ease without esophagitis J44.9 Chronic obstructive pulmonar y disease, unspecified N40.0 Benign prostatic hyperplasia without lower urinry tract symp F41.9 Anxiety disorder, unspecifie d C91.11 Chronic lymphocytic leukemia of B-cell type in remission E55.9 Vitamin D deficiency, unspec ified H40.9 Unspecified glaucoma Assessments Date Code Description Provider 09/16/2020 E78.5 Hyperlipidemia, unspecified Mehnaz Bryant M.D. [...] 9:30 am - [facility] 02/02/2021 - Clemente Bryant M.D.* * Comments:* 1. Hypertension: Well controlled on present regimen, will continue and monitor.2. Hyperlipidemia: Good results on current regimen, will continue and monitor.3. Gastro- esophageal reflux disease without esophagitis: Good results with PPI daily and will continue.4. COPD: Stable. We will continue to monitor.5. Benign prostatic hyperplasia without lower urinry tract symp: Good results on Aramis max, will continue and monitor. He will follow up with PSA results.6. Anxiety disorder: Doing well on Lexapro, will continue and monitor.7. Chronic lymphocytic leukemia of B-cell type in remission: Generally normal CBC. He is not interested in following up Hem-Onc. We will continue to monitor.8. Vitamin D [...] 6 months with CMP, CBC, lipids and magnesium. If he has new problems or issues sooner he will let us know. Functional Status Description No Information Available Mental Status Description No Information Available Referrals Description No Information Available
--- OUTSIDE RECORDS SUMMARY | 2021-03-31 07:59 | CCD | Continuity of Care Document ---
Author Author Jr BRYANT M.D. Organization Unknown Address [address] [address] Phone [phone] Care Team Providers Care Security Guard Dispatcher Name Role Phone Clemente Bryant MD [facility] [phone] Problems Active Problems Provider Date Pericardial effusion [...] Given 01/21/2021 Influenza,Unspecified U-Flu Given 01/18/2020 Influenza,Unspecified 09041 Given 02/08/2017 Influenza Vaccin e Quadrivalent Preser/Antibiotic Free Im Use [id number] Q2037 Given 02/25/2016 Fluvirin Virus Vaccine 03104 01 U-Pneum Given 10/16/2014 Pneumococcal,Unspecified 56561 Given 02/09/2013 Influenza Virus Vaccine 14191 Given 02/02/2012 Influenza Virus Vaccine 73695 Given 12/24/2010 Influenza Virus Vaccine 04558 Given 2010 Pneumovax 23 02548 Given 01/27/2010 Influenza Virus Vaccine 48958 Given 07/15/2004 Adacel- Tetanus Diphtheria P ertussis [...] H/L Range Note Complete Blood Count 02/02/2021 [facility] nadege humphries Passenger Relations Representative: Dr Bill Amaya [place], [place] [id number] [phone] WBC 8.9 x10*3/UL 4.1 - 10.9 RBC [...] 2.0 - 7.8 Comprehensive Chem Profile 02/02/2021 [facility] nadege So Passenger Relations Representative: Dr Bill Amaya [place] [address] [phone] Glucose 101 mg/dL High 74 - 99 [...] 60 mL/min >60 3 Lipid Profile 02/02/2021 [facility] , Passenger Relations Representative: Dr Bill Amaya [place] [id number] [phone] Cholesterol 160 mg/dL 131 - 200 Triglycerides 44 mg/dL 30 - 150 HDL Cholesterol 46 mg/dL 35 - 60 LDL (Calculated) 105 CALC 50 - 159 Laboratory test finding 02/02/2021 [facility] isradha, Passenger Relations Representative: Dr Bill Amaya [place] [id number] [phone] PSA <pending> Laboratory test finding 09/16/2020 [facility] sherine, Passenger Relations Representative: Dr Bill Amaya [place] [id number] [phone] Vitamin D 25-Hydroxy 32.6 ng/ml 24.0 - 80.0 4 Complete Blood Count 09/16/2020 [facility] Passenger Relations Representative: Dr [place] [address] [phone] WBC 8.6 x10*3/UL 4.1 - 10.9 RBC [...] 2.0 - 7.8 Comprehensive Chem Profile 09/16/2020 [facility] ernnadege basurto Passenger Relations Representative: [place] [address] [phone] Glucose 98 mg/dL 74 - 99 5 [...] 60 mL/min >60 6 Lipid Profile 09/16/2020 [facility] , nadege Passenger Relations Representative: [place] [address] [phone] Cholesterol 166 mg/dL 131 - 200 Triglycerides [...] LITTLE GFR LEFT ESRD GFR <15 ON FUSION OPERATOR 4 This test was performed huber [employer] Vitamin D immunoassay kit. Values obtained with [...] LITTLE GFR LEFT ESRD GFR <15 ON FUSION OPERATOR Procedures Date Code Description Status 01/01/2021 [id number] Diabetic Retinal Eye Exam Comple brissa 09/16/2020 58023 Office/Outpatient Established Mo d MDM 30-39 Min Completed 07/03/2020 [id number] Diabetic Retinal Eye Exam Comple brissa 12/29/2018 404843891 Diabetic Retinal Eye Exam Comple brissa 09/13/2018 591643232 Diabetic Retinal Eye Exam Comple brissa 08/17/2018 109599487 Diabetic Retinal Eye Exam Comple brissa 11/23/2017 068844995 Diabetic Retinal Eye Exam Comple brissa 09/01/2015 957372706 Diabetic Retinal Eye Exam Comple brissa 12/05/2014 [id number] Colonoscopy Completed 10/22/2011 [id number] Colonoscopy Completed Medical Devices Description No Information Available Encounters Type Date Location Provider Dx Diagnosis Office Visit 09/16/2020 1:30p [facility] Clemente Bryant M.D. E78.5 Hyperlipidemia, [...] 9:30 am - [facility] 02/02/2021 - Cleemnte Bryant M.D.* * Comments:* 1. Hypertension: Well [...]
--- OUTSIDE RECORDS SUMMARY | 2021-03-31 07:59 | CCD | Continuity of Care Document ---
Author Author Jr Perkins Organization Unknown Address [address] [place] [address] Phone [phone] Care Team Providers Care Toddler Nanny Name Role Phone Lisy Schneider OD AUTM [phone] Clemente Bain MD AUTM [phone] Theresa Barrera MD AUTM [phone] Linda Bernal MD AUTM [phone] Problems Active Problems Provider Date Primary open angle glaucoma of right eye Wil Apryl Jeniseent is III MD Onset: 01/16/2018 Presence of intraocular lens Wil F DeVincentis III MD On set: 10/19/2018 Bilateral age-related nonexudative macular degeneratio n Wil F DeVincentis III MD Onset: 10/19/2018 Other secondary cataract, left eye Wil F DeVincentis III MD Onset: 03/24/2018 Glaucoma secondary to other eye disorders, left eye, m oderate stage Wil F DeVincentis III MD Onset: 02/17/2018 Glaucoma secondary to other eye disorders, right eye, severe stage Wil F DeVincentis III MD Onset: 01/17/2018 Amblyopia Wil F DeVincentis III MD Onset: 12/25 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 Wil F DeVincentis III MD Onset: 01/17/2018 Social History Type Date Description Comments Sex Unknown Tobacco Use Start: Unknown End: Unknown Quit ETOH Use Denies alcohol use Tobacco Use Start: Unknown End: Unknown Patient is a former smoker Smoking Status Reviewed: 01/05/21 Patient is a former smoker Allergies and adverse reactions Description No Known Drug Allergies Medications Active Medications SIG Qnty Indications Ordering Provide r Date Combigan 0.2-0.5% Solution 1 drop into both eyes twice a day 20ml H40.51x3 Wil Perkins III, MD 02/03/2021 H40.52x2 Latanoprost 0.005% Solution instill one drop into both eyes at bedtime as directed 7.5ml H40.52x2 Wil Perkins III, MD 02/28/2019 Dorzolamide HCL 2% Solution 1 drop right eye three times a day 20ml H40.51x3 Wil Perkins III, MD 02/17/2018 Escitalopram Oxalate 5mg Tablets Unknown Ranitidine HCL 150mg Tablets Take One Tablet By Mouth Twice A Day Unknown Immunizations Description No Information Available Vital Signs Date Vital Result Comment 02/12/2021 10:15am Intraocular Pressure Right Eye 9 mmHg Ap 10:16 Am Intraocular Pressure Left Eye 10 mmHg Ap 10:16 A m 07/08/2020 10:28am Intraocular Pressure Right Eye 10 mmHg Ap Intraocular Pressure Left Eye 12 mmHg Ap 10:28 A m Results Description No Information Available Procedures Date Code Description Status 02/12/2021 14339 Office/Outpatient Established Lo w MDM 20-29 Min Completed 02/12/2021 27627 Scan Computer Diag Imag W/Report Optic Nerve Completed 02/12/2021 83526 Vis Field W/Med Diag;Ext,Chaz Pe r Completed Medical Devices Description No Information Available Encounters Type Date Location Provider Dx Diagnosis Office Visit 02/12/2021 10:15a Main Office Wil Perkins I II H40.52x2 Glaucoma sec to oth eye disord, left eye , moderate stage H40.51x3 Glaucoma secondary to oth ey e disord, r eye, severe stage Z96.1 Presence of intraocular lens H53.002 Unspecified amblyopia, left eye Assessments Date Code Description Provider 02/12/2021 H40.52x2 Glaucoma secondary t o other eye disorders, left eye, moderat Wil Perkins III, MD 02/12/2021 H40.51x3 Glaucoma secondary t o other eye disorders, right eye, severe Wil Perkins III, MD 02/12/2021 Z96.1 Presence of intraocular lens Ant maya Perkins III, MD 02/12/2021 H53.002 Unspecified amblyopia, left eye Wil Perkins III, MD Plan of Treatment Future Appointment(s):* 08/10/2021 10:00 am - Wil Perkins III, MD at Main Office 02/12/2021 - Wil Perkins III, MD* H40.52x2 Glaucoma secondary to other eye disorders, left eye, moderat* Comments:* CPM * Follow up:* 4-6m IOP ck, OU 10-2, OU Nerve Oct, Dil M&N * H40.51x3 Glaucoma secondary to other eye disorders, right eye, severe* Comments:* See #1 CPM * Z96.1 Presence of intraocular lens* Comments:* Monitor * H53.002 Unspecified amblyopia, left eye* Comments:* Monitor. Functional Status Description No Information Available Mental Status Description No Information Available Referrals Description No Information Available
--- OUTSIDE RECORDS SUMMARY | 2021-03-31 08:00 | CCD | Continuity of Care Document ---
Author Author Jr BRYANT M.D. Organization Unknown Address [address] [address] Phone [phone] Care Team Providers Care Health Safety Engineer Name Role Phone Clemente Bryant MD [facility] [phone] Problems Active Problems Provider Date Pericardial effusion [...] age 14 quit when he was 65 Allergies, Adverse Reactions, Alerts Active Allergies Criticality Reaction | Severity Comments [...] Status Date Vaccine Lot # U-Flu Given 01/18/2020 Influenza,Unspecified 19403 Given 02/08/2017 Influenza Vaccin e Quadrivalent Preser/Antibiotic Free Im Use [id number] Given 02/25/2016 Fluvirin Virus Vaccine 28901 01 U-Pneum Given 10/16/2014 Pneumococcal,Unspecified 88515 Given 02/09/2013 Influenza Virus Vaccine 00841 Given 02/02/2012 Influenza Virus Vaccine 57566 Given 12/24/2010 Influenza Virus Vaccine 07167 Given 2010 Pneumovax 23 31956 Given 01/27/2010 Influenza Virus Vaccine 29088 Given 07/15/2004 Adacel- Tetanus Diphtheria P ertussis (Age64 & Under) Vital Signs Date Vital Result Comment 09/16/2020 12:54pm BP Systolic 110 mmHg BP Diastolic 60 mmHg Heart Rate 71 /min Height 70 inches 5'10" Weight 191.12 lb O2 % BldC Oximetry 96 % RM Air BMI (Body Mass Index) 27.4 kg/m2 11/09/2019 2:32pm BP Systolic 110 mmHg BP Diastolic 58 mmHg Heart Rate 62 /min Height 70 inches 5'10" Weight 192.00 lb BMI (Body Mass Index) 27.5 kg/m2 Results Test Acquired Date Facility Test Result H/L Range Note Laboratory test finding 09/16/2020 [facility] nadege basurto Credit Rating Inspector: Dr Bill Amaya [place], [place] [address] [phone] Vitamin D 25-Hydroxy 32.6 ng/ml 24.0 - 80.0 1 Complete Blood Count 09/16/2020 [facility] nadege Guzman Credit Rating Inspector: [place] [address] [phone] WBC 8.6 x10*3/UL 4.1 - 10.9 RBC [...] 2.0 - 7.8 Comprehensive Chem Profile 09/16/2020 [facility] nadege So Credit Rating Inspector: [place] [address] [phone] Glucose 98 mg/dL 74 - 99 2 BUN 23 mg/dL High 7 - 18 [...] >= 60 mL/min >60 3 Lipid Profile 09/16/2020 [facility] Credit Rating Inspector: [place] [address] [phone] Cholesterol 166 mg/dL 131 - 200 Triglycerides 70 mg/dL 30 - 150 HDL Cholesterol 47 mg/dL 35 - 60 LDL (Calculated) 105 CALC 50 - 159 1 This test was performed [employer] Vitamin D immunoassay kit. Values obtained with different assay methods should not be used interchangeably. 2 100-125 mg/dL PRE-DIABET ES/FASTING >126 mg/dL DIABETES/FASTING 3 CHRONIC KIDNEY DISEASE STAGI NG PER NKF STAGE I & II GFR >= 60 NORMAL TO MILDLY DECREASED STAGE III GFR 30-59 MODERATELY DECREASED STAGE IV GFR 15-29 SEVERELY DECREASED STAGE V GFR <15 VERY LITTLE GFR LEFT ESRD GFR <15 ON CAR SCRUBBER Procedures Date Code Description Status 01/01/2021 656768125 Diabetic Retinal Eye Exam Comple [facility] 09/16/2020 39371 Office/Outpatient Established Mo d MDM 30-39 Min Completed 07/03/2020 651883451 Diabetic Retinal Eye Exam Comple [facility] 12/29/2018 [id number] Diabetic Retinal Eye Exam Comple [facility] 09/13/2018 743823572 Diabetic Retinal Eye Exam Comple [facility] 08/17/2018 673103182 Diabetic Retinal Eye Exam Comple [facility] 11/23/2017 020756123 Diabetic Retinal Eye Exam Comple [facility] 09/01/2015 529906625 Diabetic Retinal Eye Exam Comple [facility] 12/05/2014 73312562 Colonoscopy Completed 10/22/2011 [id number] Colonoscopy Completed Medical Devices Description No Information Available Encounters Type Date Location Provider Dx Diagnosis Office Visit 09/16/2020 1:30p [facility] Clemente Bryant M.D. E78.5 Hyperlipidemia, [...] rod M.D. Plan of Treatment Future Appointment(s):* 02/02/2021 3:00 pm - Clemente Bryant M.D. at [facility] 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 Hyperlipidemia: Good results on Pravastatin will continue to monitor.2. Hypertension: Well controlled on present regimen, will continue and monitor.3. Gastro-esophageal reflux disease without esophagitis: Good results with PPI as needed.4. COPD: Patient quit smoking previously and notes that he has been doing well. He declines the CT scan of the abdomen and understands the risks of not having it.5. Benign prostatic hyperplasia without lower urinry tract symp: Good results on Flomax, will monitor.6. Anxiety disorder: Doing well on Lexapro, will continue and monitor.7. Chronic lymphocytic leukemia of B-cell type in remission: Await for labs. Continue to monitor CBC. We will re-address if indeed. [facility]. Vitamin D deficiency: Await for results. Patient has been on supplementation, will continue. 9. Glaucoma: Patient is following up with ophthalmologists. He has glaucoma and significant decreased vision due to macular degeneration. He does not drive and will follow up.Ongoing cares: I am going to see him again in 4 months with CMP, lipids and CBC. If he has new problems or issues sooner he will let us know. Functional Status Description No Information Available Mental Status Description No Information Available Referrals Description No Information Available
--- OUTSIDE RECORDS SUMMARY | 2021-03-31 08:00 | CCD | Continuity of Care Document ---
Author Author Jr BRYANT M.D. Organization Unknown Address [address] [address] Phone [phone] Care Team Providers Care Toggler Name Role Phone Clemente Bryant MD [facility] [phone] Problems Active Problems Provider Date Pericardial effusion [...] Given 01/21/2021 Influenza,Unspecified U-Flu Given 01/18/2020 Influenza,Unspecified 92810 Given 02/08/2017 Influenza Vaccin e Quadrivalent Preser/Antibiotic Free Im Use 596800 Q2037 Given 02/25/2016 Fluvirin Virus Vaccine 99804 01 U-Pneum Given 10/16/2014 Pneumococcal,Unspecified 90804 Given 02/09/2013 Influenza Virus Vaccine 89418 Given 02/02/2012 Influenza Virus Vaccine 61397 Given 12/24/2010 Influenza Virus Vaccine 58197 Given 2010 Pneumovax 23 56592 Given 01/27/2010 Influenza Virus Vaccine 17649 Given 07/15/2004 Adacel- Tetanus Diphtheria P ertussis [...] H/L Range Note Complete Blood Count 02/02/2021 [facility] [employer] nadege humphries Supervisor Beam Department: Dr Bill Amaya [place], [place] [id number] [phone] WBC 8.9 x10*3/UL 4.1 - 10.9 RBC [...] 2.0 - 7.8 Comprehensive Chem Profile 02/02/2021 [facility] nadege So Supervisor Beam Department: Dr Bill Amaya [place] [id number] [phone] Glucose 101 mg/dL High 74 - 99 [...] 60 mL/min >60 3 Lipid Profile 02/02/2021 [facility] , Supervisor Beam Department: Dr Bill Amaya [place] [id number] [phone] Cholesterol 160 mg/dL 131 - 200 Triglycerides 44 mg/dL 30 - 150 HDL Cholesterol 46 mg/dL 35 - 60 LDL (Calculated) 105 CALC 50 - 159 Laboratory test finding 02/02/2021 [facility] Direct Care Supervisor isradha, Supervisor Beam Department: Dr Bill Amaya [place] [id number] [phone] PSA <pending> Laboratory test finding 09/16/2020 [facility] Supervisor sherine, Supervisor Beam Department: Dr Bill Amaya [place] [id number] [phone] Vitamin D 25-Hydroxy 32.6 ng/ml 24.0 - 80.0 4 Complete Blood Count 09/16/2020 [facility] Supervisor Beam Department: [place] [address] [phone] WBC 8.6 x10*3/UL 4.1 - 10.9 RBC [...] 2.0 - 7.8 Comprehensive Chem Profile 09/16/2020 [facility] basurto Supervisor Beam Department: [place] [address] [phone] Glucose 98 mg/dL 74 - 99 5 [...] 60 mL/min >60 6 Lipid Profile 09/16/2020 [facility] nadege Supervisor Beam Department: [place] [address] [phone] Cholesterol 166 mg/dL 131 - 200 Triglycerides [...] LITTLE GFR LEFT ESRD GFR <15 ON VENDING SUPERVISOR 4 This test was performed [employer] Vitamin D immunoassay kit. Values obtained with [...] LITTLE GFR LEFT ESRD GFR <15 ON VENDING SUPERVISOR Procedures Date Code Description Status 01/01/2021 [id number] Diabetic Retinal Eye Exam Comple [facility] 09/16/2020 76537 Office/Outpatient Established Mo d MDM 30-39 Min Completed 07/03/2020 390475450 Diabetic Retinal Eye Exam Comple [facility] 12/29/2018 [id number] Diabetic Retinal Eye Exam Comple [facility] 09/13/2018 441880748 Diabetic Retinal Eye Exam Comple [facility] 08/17/2018 938342803 Diabetic Retinal Eye Exam Comple [facility] 11/23/2017 727685512 Diabetic Retinal Eye Exam Comple [facility] 09/01/2015 073185823 Diabetic Retinal Eye Exam Comple [facility] 12/05/2014 [id number] Colonoscopy Completed 10/22/2011 [id number] Colonoscopy Completed Medical Devices Description No Information Available Encounters Type Date Location Provider Dx Diagnosis Office Visit 09/16/2020 1:30p [facility] Clemente Bryant M.D. E78.5 Hyperlipidemia, [...] 9:30 am - [facility] 02/02/2021 - Clemente Bryant M.D.* * [...]
--- OUTSIDE RECORDS SUMMARY | 2021-03-31 08:00 | CCD | Continuity of Care Document ---
Author Author Jr BRYANT M.D. Organization Unknown Address [address] [address] Phone [phone] Care Team Providers Care Ice Cream Shop Associate Name Role Phone Clemente Bryant MD [facility] [phone] Problems Active Problems Provider Date Pericardial effusion [...] Given 01/21/2021 Influenza,Unspecified U-Flu Given 01/18/2020 Influenza,Unspecified 05842 Given 02/08/2017 Influenza Vaccin e Quadrivalent Preser/Antibiotic Free Im Use [id number] Q2037 Given 02/25/2016 Fluvirin Virus Vaccine 80445 01 U-Pneum Given 10/16/2014 Pneumococcal,Unspecified 22268 Given 02/09/2013 Influenza Virus Vaccine 17216 Given 02/02/2012 Influenza Virus Vaccine 15379 Given 12/24/2010 Influenza Virus Vaccine 47726 Given 2010 Pneumovax 23 01340 Given 01/27/2010 Influenza Virus Vaccine 49125 Given 07/15/2004 Adacel- Tetanus Diphtheria P ertussis [...] H/L Range Note Complete Blood Count 02/02/2021 [facility] [employer] [facility] nadege humphries Customer Service Technician: Dr Bill Amaya [place], [place] [id number] [phone] WBC 8.9 x10*3/UL 4.1 - 10.9 RBC [...] 2.0 - 7.8 Comprehensive Chem Profile 02/02/2021 [facility] nadege So Customer Service Technician: Dr Bill Amaya [place] [id number] [phone] Glucose 101 mg/dL High 74 - 99 [...] 60 mL/min >60 3 Lipid Profile 02/02/2021 [facility] , Customer Service Technician: Dr Bill Amaya [place] [id number] [phone] Cholesterol 160 mg/dL 131 - 200 Triglycerides 44 mg/dL 30 - 150 HDL Cholesterol 46 mg/dL 35 - 60 LDL (Calculated) 105 CALC 50 - 159 Laboratory test finding 02/02/2021 [facility] Assistant Facility Manager isradha, Customer Service Technician: Dr Bill Amaya [place] [id number] [phone] PSA <pending> Laboratory test finding 09/16/2020 [facility] Assistant Facility Manager sherine, Customer Service Technician: Dr Bill Amaya [place] [id number] [phone] Vitamin D 25-Hydroxy 32.6 ng/ml 24.0 - 80.0 4 Complete Blood Count 09/16/2020 [facility] Customer Service Technician: [place] [address] [phone] WBC 8.6 x10*3/UL 4.1 - 10.9 RBC [...] 2.0 - 7.8 Comprehensive Chem Profile 09/16/2020 [facility]nadege basurto Customer Service Technician: [place] [address] [phone] Glucose 98 mg/dL 74 - 99 5 [...] 60 mL/min >60 6 Lipid Profile 09/16/2020 [facility] nadege Customer Service Technician: [place] [address] [phone] Cholesterol 166 mg/dL 131 - 200 Triglycerides [...] LITTLE GFR LEFT ESRD GFR <15 ON NATIONAL FLATBED TRUCK DRIVER 4 This test was performed huber [employer] Vitamin D immunoassay kit. Values obtained with [...] LITTLE GFR LEFT ESRD GFR <15 ON NATIONAL FLATBED TRUCK DRIVER Procedures Date Code Description Status 01/01/2021 [id number] Diabetic Retinal Eye Exam Comple [facility] 09/16/2020 17964 Office/Outpatient Established Mo d MDM 30-39 Min Completed 07/03/2020 [id number] Diabetic Retinal Eye Exam Comple [facility] 12/29/2018 345652328 Diabetic Retinal Eye Exam Comple [facility] 09/13/2018 289301142 Diabetic Retinal Eye Exam Comple [facility] 08/17/2018 011963129 Diabetic Retinal Eye Exam Comple [facility] 11/23/2017 438695755 Diabetic Retinal Eye Exam Comple [facility] 09/01/2015 957787093 Diabetic Retinal Eye Exam Comple [facility] 12/05/2014 16754505 Colonoscopy Completed 10/22/2011 [id number] Colonoscopy Completed Medical Devices Description No Information Available Encounters Type Date Location Provider Dx Diagnosis Office Visit 09/16/2020 1:30p [facility] Clemente Bryant M.D. E78.5 Hyperlipidemia, [...] 9:30 am - [facility] [place] 02/02/2021 - Clemente Bryant M.D.* * [...]
--- OUTSIDE RECORDS SUMMARY | 2021-03-31 08:00 | CCD ---
Author Author [facility] Organization [facility] Address Unknown Phone Unavailable Care Team Providers Care Outsole Handler Name Role Phone Apryl Bain MD Unavailable Unavailable Apryl Bain MD Unavailable Unavailable Apryl Bain MD Unavailable Unavailable Apryl Bain MD Unavailable Unavailable Apryl Bain MD Unavailable Unavailable Apryl Bain MD Unavailable Unavailable Apryl Bain MD Unavailable Unavailable Apryl Bain MD Unavailable Unavailable Apryl Bain MD Unavailable Unavailable Apryl Bain MD Unavailable Unavailable Apryl Bain MD Unavailable Unavailable Apryl Bain MD Unavailable Unavailable Apryl Bain MD Unavailable Unavailable Apryl Bain MD Unavailable Unavailable Apryl Bain MD Unavailable Unavailable Apryl Bain MD Unavailable Unavailable Apryl Bain MD Unavailable Unavailable Apryl Bain MD Unavailable Unavailable Apryl Bain MD Unavailable Unavailable Apryl Bain MD Unavailable Unavailable Apryl Bain MD Unavailable Unavailable Apryl Bani MD Unavailable Unavailable Apryl Bain MD Unavailable Unavailable Apryl Bain MD Unavailable Unavailable Apryl Bain MD Unavailable Unavailable Apryl Bain MD Unavailable Unavailable Apryl Bain MD Unavailable Unavailable Apryl Bain MD Unavailable Unavailable Apryl Bain MD Unavailable Unavailable Apryl Bain MD Unavailable Unavailable Apryl Bani MD Unavailable Unavailable Apryl Bain MD Unavailable Unavailable Apryl Bain MD Unavailable Unavailable Apryl Bain MD Unavailable Unavailable Apryl Bain MD Unavailable Unavailable Apryl Bain MD Unavailable Unavailable Apryl Bain MD Unavailable Unavailable Apryl Bain MD Unavailable Unavailable Apryl Bain MD Unavailable Unavailable Apryl Bain MD Unavailable Unavailable Apryl Bain MD Unavailable Unavailable Apryl Bain MD Unavailable Unavailable Apryl Bain MD Unavailable Unavailable Apryl Bain MD Unavailable Unavailable Apryl Bain MD Unavailable Unavailable Apryl Bain MD Unavailable Unavailable Apryl Bain MD Unavailable Unavailable Apryl Bain MD Unavailable Unavailable Apryl Bain MD Unavailable Unavailable Apryl Bain MD Unavailable Unavailable Apryl Bain MD Unavailable Unavailable Apryl Bain MD Unavailable Unavailable Apryl Bain MD Unavailable Unavailable Apryl Bain MD Unavailable Unavailable Apryl Bain MD Unavailable Unavailable Apryl Bain MD Unavailable Unavailable Apryl Bain MD Unavailable Unavailable Apryl Bain MD Unavailable Unavailable Apryl Bain MD Unavailable Unavailable Apryl Bain MD Unavailable Unavailable Apryl Bain MD Unavailable Unavailable Apryl Bain MD Unavailable Unavailable Apryl Bain MD Unavailable Unavailable Apryl Bain MD Unavailable Unavailable Apryl Bain MD Unavailable Unavailable Apryl Bain MD Unavailable Unavailable Apryl Bain MD Unavailable Unavailable Apryl Bain MD Unavailable Unavailable Apryl Bain MD Unavailable Unavailable Apryl Bain MD Unavailable Unavailable Apryl Bain MD Unavailable Unavailable Apryl Bain MD Unavailable Unavailable Apryl Bain MD Unavailable Unavailable Apryl Bain MD Unavailable Unavailable Apryl Bain MD Unavailable Unavailable Apryl Bain MD Unavailable Unavailable Apryl Bain MD Unavailable Unavailable Apryl Bain MD Unavailable Unavailable DEVINCENTIS III, F TERRENCE MD Unavailable Unavailabl e DEVINCENTIS III, F TERRENCE MD Unavailable Unavailabl e DEVINCENTIS III, F TERRENCE MD Unavailable Unavailabl e DEVINCENTIS III, F TERRENCE MD Unavailable Unavailabl e DEVINCENTIS III, F TERRENCE MD Unavailable Unavailabl e DEVINCENTIS III, F TERRENCE MD Unavailable Unavailabl e DEVINCENTIS III, F TERRENCE MD Unavailable Unavailabl e DEVINCENTIS III, F TERRENCE MD Unavailable Unavailabl e DEVINCENTIS III, F TERRENCE MD Unavailable Unavailabl e DEVINCENTIS III, F TERRENCE MD Unavailable Unavailabl e DEVINCENTIS III, F TERRENCE MD Unavailable Unavailabl e DEVINCENTIS III, F TERRENCE MD Unavailable Unavailabl e DEVINCENTIS III, F TERRENCE MD Unavailable Unavailabl e DEVINCENTIS III, F TERRENCE MD Unavailable Unavailabl e DEVINCENTIS III, F TERRENCE MD Unavailable Unavailabl e DEVINCENTIS III, F TERRENCE MD Unavailable Unavailabl e DEVINCENTIS III, F TERRENCE MD Unavailable Unavailabl e DEVINCENTIS III, F TERRENCE MD Unavailable Unavailabl e DEVINCENTIS III, F TERRENCE MD Unavailable Unavailabl e DEVINCENTIS III, F TERRENCE MD Unavailable Unavailabl e DEVINCENTIS III, F TERRENCE MD Unavailable Unavailabl e DEVINCENTIS III, F TERRENCE MD Unavailable Unavailabl e DEVINCENTIS III, F TERRENCE MD Unavailable Unavailabl e DEVINCENTIS III, F TERRENCE MD Unavailable Unavailabl e DEVINCENTIS III, F TERRENCE MD Unavailable Unavailabl e DEVINCENTIS III, F TERRENCE MD Unavailable Unavailabl e DEVINCENTIS III, F TERRENCE MD Unavailable Unavailabl e DEVINCENTIS III, F TERRENCE MD Unavailable Unavailabl e DEVINCENTIS III, F TERRENCE MD Unavailable Unavailabl e DEVINCENTIS III, F TERRENCE MD Unavailable Unavailabl e DEVINCENTIS III, F TERRENCE MD Unavailable Unavailabl e DEVINCENTIS III, F TERRENCE MD Unavailable Unavailabl e DEVINCENTIS III, F TERRENCE MD Unavailable Unavailabl e DEVINCENTIS III, F TERRENCE MD Unavailable Unavailabl e DEVINCENTIS III, F TERRENCE MD Unavailable Unavailabl e DEVINCENTIS III, F TERRENCE MD Unavailable Unavailabl e DEVINCENTIS III, F TERRENCE MD Unavailable Unavailabl e DEVINCENTIS III, F TERRENCE MD Unavailable Unavailabl e DEVINCENTIS III, F TERRENCE MD Unavailable Unavailabl e DEVINCENTIS III, F TERRENCE MD Unavailable Unavailabl e DEVINCENTIS III, F TERRENCE MD Unavailable Unavailabl e DEVINCENTIS III, F TERRENCE MD Unavailable Unavailabl e DEVINCENTIS III, F TERRENCE MD Unavailable Unavailabl e DEVINCENTIS III, F TERRENCE MD Unavailable Unavailabl e DEVINCENTIS III, F TERRENCE MD Unavailable Unavailabl e DEVINCENTIS III, F TERRENCE MD Unavailable Unavailabl e DEVINCENTIS III, F TERRENCE MD Unavailable Unavailabl e DEVINCENTIS III, F TERRENCE MD Unavailable Unavailabl e DEVINCENTIS III, F TERRENCE MD Unavailable Unavailabl e DEVINCENTIS III, F TERRENCE MD Unavailable Unavailabl e DEVINCENTIS III, F TERRENCE MD Unavailable Unavailabl e DEVINCENTIS III, F TERRENCE MD Unavailable Unavailabl e DEVINCENTIS III, F TERRENCE MD Unavailable Unavailabl e DEVINCENTIS III, F TERRENCE MD Unavailable Unavailabl e DEVINCENTIS III, F TERRENCE MCKEON Unavailable Unavailabl e DEVINCENTIS III, F TERRENCE MCKEON Unavailable Unavailabl e DEVINCENTIS III, F TERRENCE MD Unavailable Unavailabl e DEVINCENTIS III, F TERRENCE MCKEON Unavailable Unavailabl e Re-disclosure Warning The records that you are about to access may contain information from federally-assisted alcohol or drug abuse programs. If such information is present, then the following federally mandated warning applies: This information has been disclosed to you from records protected by federal confidentiality rules (42 CFR part 2). The federal rules prohibit you from making any further disclosure of this information unless further disclosure is expressly permitted by the written consent of the person to whom it pertains or as otherwise permitted by 42 CFR part 2. A general authorization for the release of medical or other information is NOT sufficient for this purpose. The Federal rules restrict any use of the information to criminally investigate or prosecute any alcohol or drug abuse patient.The records that you are about to access may contain highly sensitive health information, the redisclosure of which is protected by Article 27-F of the [facility] Public Health law. If you continue you may have access to information: Regarding HIV / AIDS; Provided by facilities licensed or operated by the [facility] Office of Mental Health; or Provided by the [facility] Office for People With Developmental Disabilities. If such information is present, then the following [facility] mandated warning applies: This information has been disclosed to you from confidential records which are protected by state law. State law prohibits you from making any further disclosure of this information without the specific written consent of the person to whom it pertains, or as otherwise permitted by law. Any unauthorized further disclosure in violation of state law may result in a fine or senior care sentence or both. A general authorization for the release of medical or other information is NOT sufficient authorization for further disc losure. Family History Family Member Name Family Member Gender Family Member Status Date o f Status Description Data Source(s) Unknown Unknown Problem [facility] ([facility] Unknown Unknown Problem [facility] Unknown Unknown Problem [facility] Unknown Female Problem [facility] ([facility]) Unknown Female Problem [facility] ([facility]) Unknown Female Problem [facility] ([facility]) Encounters Encounter Providers Location Date Indications Data Source(s ) Outpatient Attender: TERRENCE VILLALBA III [facility] 02/12/2021 10:15:00 AM EDT [facility] ([facility]) Outpatient Attender: Clemente Jonas 02/02 03:00:00 PM EDT [facility] ([facility] ) Outpatient Attender: Clemente Jonas 09/16 01:30:00 PM EDT [facility] ([facility] ) Office Visit Attender: TERRENCE VILLALBA III [facility] 07/08/2020 10:15:00 AM EDT [facility] ([facility]) Immunizations Vaccine Date Status Description Data Source(s) COVID-19 VACCINE Moderna 03/06/2021 12:00:00 AM EST completed [facility] Vaccine Series Complete: NOThis Data was Submitted to [facility] Via [facility]. This CVX code allows reporting of a vacc ination when formulation is unknown (for example, when recording a Influenza vaccination when noted on a vaccination card) 01/21/2021 03:06:00 PM EDT completed MEDEN T ([facility]) Medications Medication Brand Name Start Date Product Form Dose Route Admi nistrative Instructions Pharmacy Instructions Status Indications Reaction Description Data Source(s) 100 mcg/0.5 mL 03/06/2021 12:00:00 AM EST suspension 0 INJECT DIRECTED PER STANDING ORDER [3RD DOSE] INJECT DIRECTED PER STANDING ORDER [3RD DOSE] SOLD: 03/06/2021 [facility] Brimonidine tartrate 2 MG/ML / Timolol 5 MG/ML Ophthalmic Solution [Combigan] 0.2-0.5 % BRIMONIDINE TARTRATE/TIMOLOL 02/03/2021 12:00:00 AM EDT drops 20 INSTILL 1 DROP IN EACH EYE TWO TIMES A DAY INSTILL 1 DROP IN EACH EYE TWO TIMES A DAY SOLD: 02/06/2021 [facility] Brimonidine tartrate 2 MG/ML / Timolol 5 MG/ML Ophthal zbigniew Solution [Combigan] Combigan 02/03/2021 12:00:00 AM EDT OPHTHALMIC active [facility] ([facility]) 0.005 % 01/02/2021 12:00:00 AM EDT drops 7 INSTILL 1 DROP IN BOTH EYES AT BEDTIME DIRECTED INSTILL 1 DROP IN BOTH EYES AT BEDTIME DIRECTED EMMA [facility] SUPREP BOWEL PREP KIT 17.5-3.13-1.6 gram SODIUM, POTASSIUM,M AG SULFATES 12/17/2020 12:00:00 AM EDT recon soln 354 TAKE PER DOCTOR'S BOWEL PREP INSTRUCTIONS TAKE PER DOCTOR'S BOWEL PREP INSTRUCTIONS SOLD: 12/24/2020 [facility] Suprep Bowel Prep Kit Suprep Bowel Prep Kit 12/17/2020 12:00:00 AM EDT active [facility] ([facility] ) Magnesium Hydroxide 80 MG/ML Oral Suspension Milk Of Magnesi a 12/17/2020 12:00:00 AM EDT ORAL active M EDENT ([facility], ) 2 % 10/20/2020 12:00:00 AM EDT drops 20 INSTILL 1 DROP INTO RIGHT EYE THREE TIMES A DAY INSTILL 1 DROP INTO RIGHT EYE THREE TIMES A DAY SOLD: 02/26/2021 [facility] 2 % 10/20/2020 12:00:00 AM EDT drops 20 INSTILL 1 DROP INTO RIGHT EYE THREE TIMES A DAY INSTILL 1 DROP INTO RIGHT EYE THREE TIMES A DAY SOLD: 10/22/2020 [facility] 25 mg 06/19/2020 12:00:00 AM EST tablet 90 TAKE ONE TABLET BY MOUTH EVERY DAY TAKE ONE TABLET BY MOUTH EVERY DAY SOLD: 01/04/2021 [facility] 25 mg 06/19/2020 12:00:00 AM EST tablet 90 TAKE ONE TABLET BY MOUTH EVERY DAY TAKE ONE TABLET BY MOUTH EVERY DAY SOLD: 10/02/2020 [facility] 25 mg 06/19/2020 12:00:00 AM EST tablet 90 TAKE ONE TABLET BY MOUTH EVERY DAY TAKE ONE TABLET BY MOUTH EVERY DAY SOLD: 06/20/2020 [facility] 5 mg 03/31/2020 12:00:00 AM EST tablet 180 TAKE TWO TABLETS BY MOUTH EVERY DAY TAKE TWO TABLETS BY MOUTH EVERY DAY SOLD: 04/03/2020 [facility] Escitalopram 5 MG Oral Tablet ESCITALOPRAM OXALATE 03/31/2020 12 :00:00 AM EST tablet 180 TAKE TWO TABLETS BY MOUTH EVERY DAY TAKE TWO TABLETS BY MOUTH EVERY DAY SOLD: 10/02/2020 [facility] Escitalopram 5 MG Oral Tablet ESCITALOPRAM OXALATE 03/31/2020 12 :00:00 AM EST tablet 180 TAKE TWO TABLETS BY MOUTH EVERY DAY TAKE TWO TABLETS BY MOUTH EVERY DAY SOLD: 07/01/2020 [facility] Escitalopram 5 MG Oral Tablet ESCITALOPRAM OXALATE 03/31/2020 12 :00:00 AM EST tablet 180 TAKE TWO TABLETS BY MOUTH EVERY DAY TAKE TWO TABLETS BY MOUTH EVERY DAY SOLD: 01/04/2021 [facility] 0.2-0.5 % 03/11/2020 12:00:00 AM EST drops 20 INSTILL ONE DROP IN EACH EYE TWICE A DAY INSTILL ONE DROP IN EACH EYE TWICE A DAY SOLD: 03/13/2020 [facility] Brimonidine tartrate 2 MG/ML / Timolol 5 MG/ML Ophthalmic Solution [Combigan] 0.2-0.5 % BRIMONIDINE TARTRATE/TIMOLOL 03/11/2020 12:00:00 AM EST drops 20 INSTILL ONE DROP IN EACH EYE TWICE A DAY INSTILL ONE DROP IN EACH EYE TWICE A DAY SOLD: 09/01/2020 [facility] Brimonidine tartrate 2 MG/ML / Timolol 5 MG/ML Ophthalmic Solution [Combigan] 0.2-0.5 % BRIMONIDINE TARTRATE/TIMOLOL 03/11/2020 12:00:00 AM EST drops 20 INSTILL ONE DROP IN EACH EYE TWICE A DAY INSTILL ONE DROP IN EACH EYE TWICE A DAY SOLD: 11/26/2020 [facility] 0.2-0.5 % 03/11/2020 12:00:00 AM EST drops 20 INSTILL ONE DROP IN EACH EYE TWICE A DAY INSTILL ONE DROP IN EACH EYE TWICE A DAY SOLD: 06/04/2020 [facility] 0.005 % 01/02/2020 12:00:00 AM EDT drops 7 INSTILL 1 DROP INTO BOTH EYES AT BEDTIME DIRECTED INSTILL 1 DROP INTO BOTH EYES AT BEDTIME DIRECTED S OLD: 07/30/2020 [facility] 0.005 % 01/02/2020 12:00:00 AM EDT drops 7 INSTILL 1 DROP INTO BOTH EYES AT BEDTIME DIRECTED INSTILL 1 DROP INTO BOTH EYES AT BEDTIME DIRECTED S OLD: 03/13/2020 [facility] 0.2-0.5 % 08/16/2019 12:00:00 AM EDT drops 10 INSTILL 1 DROP INTO BOTH EYES TWO TIMES A DAY INSTILL 1 DROP INTO BOTH EYES TWO TIMES A DAY SOLD: 01/30/20 20 [facility] 25 mg 07/03/2019 12:00:00 AM EDT tablet 90 TAKE 1 TABLET BY MOUTH EVERY DAY TAKE 1 TABLET BY MOUTH EVERY DAY SOLD: 04/03/2020 [facility] Insurance Providers Payer name Policy type / Coverage type Policy ID Covered constitution party ID Covered constitution party's relationship to chinchilla Policy Chinchilla Plan Information [employer]OM[employer] [id number] [place] [id number] [employer] [id number] [place] [id number] Medicare (Part B) Medicare Primary [id number] Self 1 [id number] Medicare (Part B) Medicare Primary [id number] Self 1 [id number] MEDICARE [id number] SP [id number] A Medicare Natl Govt Servic Medicare Primary [id number] Self Medicare Natl Govt Servic Medicare Primary [id number] Self [id number] Medicare (Part B) Medicare Primary [id number] Self [id number] A MEDICARE [id number] SP [id number] Medicare (Part B) Medicare Primary [id number] Self 1 [id number] Medicare Natl Govt Servic Medicare Primary [id number] Self [id number] MEDICARE [id number] SP [id number] MEDICARE [id number] SP [id number] A Medicare (Part B) Medicare Primary [id number] Self 1 [id number] Medicare (Part B) Medicare Primary [id number] Self 1 [id number] Medicare (Part B) Medicare Primary [id number] Self 1 [id number] Medicare Medicare Primary [id number] Self [facility] [id number] [id number] Umr Commercial [id number] Family Dependent [id number] MEDICARE C [id number] S [id number] A [employer] Ppo Medigap Part B [id number] Family Dependent [id number] Umr Medigap Part B [id number] Family Dependent [id number] Medicare [place]/[facility] Medicare Primary [id number] Self 1 [id number] [employer] PHCS Ppo Medigap Part B [id number] Family Dependent [id number] Umr Medigap Part B [id number] Family Dependent [id number] [employer] PPO O [id number] S [id number] [employer] Ppo Commercial [id number] Family Dependent [id number] Medicare [place] Medicare Primary [id number] Self 1 [id number] [employer] Health Maintenance Organization (HMO) [id number] Family Dependent 8 [id number] [employer] BCBS Medigap Part B [id number] Self [id number] [employer] COMM SELF [id number] SPO [id number] [employer] PHCS Ppo Commercial [id number] Family Dependent [id number] BC[facility] [id number] S YOU [id number] [employer] Ppo Commercial [id number] Family Dependent [id number] Medicare [place] Medicare Primary [id number] Self 1 [id number] [employer] Health Maintenance Organization (HMO) [id number] Family Dependent 8 [id number] [employer] Ppo Commercial [id number] Family Dependent 91 0 [employer] BCBS Medigap Part B [id number] Self [employer] Commercial [id number] Family Dependent [facility] [id number] 01 [id number] [employer] PPO O [id number] P [id number] [place] Medicare Primary [id number] Self BS [place] [id number] Self [place] (pr) Commercial [id number] Family Dependent MEDICARE PART A[facility] [id number] 18 [id number] MEDICARE -O/P [id number] 18 [id number] Medicare Part B Medicare Primary [id number] Self [id number] Umr Commercial [id number] Family Dependent [id number] Medicare Part B Medicare Primary [id number] Self [id number] Medicare [place]/[facility] Medicare Primary [id number] Self 1 [id number] [employer] PHCS Ppo Medigap Part B [id number] Family Dependent [id number] Umr [facility] Part B [id number] Family Dependent [id number] [employer] [facility] Medigap Part B [id number] [id number] Self [id number] Medicare Part B Medicare Primary [id number] Self [id number] [employer] PHCS Ppo Medigap Part B [id number] Family Dependent [id number] Umr Medigap Part B [id number] Family Dependent [id number] [employer] PHCS Ppo Medigap Part B [id number] Family Dependent [id number] Medigap Part B [id number] Family Dependent [id number] Medicare Part B Medicare Primary [id number] Self [id number] Medicare Part B Medicare Primary [id number] Self [id number] Medicare [place] Medicare Primary [id number] Self 1 [id number] [facility] [id number] [facility] [id number] Medicare Part B Medicare Primary [id number] Self [id number] MEDICARE C [id number] S [id number] A R O [id number] S [id number] Problems, Conditions, and Diagnoses Code Display Name Description Problem Type Effective Dates Data Source(s) 12291588 Essential hypertension Essential hypertension Problem 12/02/2020 12:00:00 AM EDT [facility] ([facility], ) Surgeries/Procedures Procedure Description Date Indications Data Source(s) Vis Field W/Med Diag;Ext,Chaz Per 02/12/2021 12:00:00 AM EDT [facility] ([facility]) Scan Computer Diag Imag W/Report Optic Nerve 12:00:00 AM EDT [facility] ([facility]) OFFICE OUTPATIENT VISIT 15 MINUTES 02/12/2021 12:00:00 AM EDT [facility] ([facility]) OFFICE OUTPATIENT VISIT 25 MINUTES 02/02/2021 12:00:00 AM EDT [facility] ([facility]) Diabetic Retinal Eye Exam 01/01/2021 12:00:00 AM EDT [facility] ([facility]) OFFICE OUTPATIENT VISIT 25 MINUTES 09/16/2020 12:00:00 AM EDT [facility] ([facility]) Exam, Comprehensive, Est PT 07/08/2020 12:00:00 AM EDT [facility] ([facility]) Vis Field W/Med Diag;Ext,Chaz Per 07/08/2020 12:00:00 AM EDT [facility] ([facility]) Scan Computer Diag Imag W/Report Optic Nerve 12:00:00 AM EDT [facility] ([facility]) Diabetic Retinal Eye Exam 07/03/2020 12:00:00 AM EST [facility] ([facility]) Results ID Date Data Source [id number] 2021 10:25:00 AM EST [facility] Name Value Range Interpretation Code Description Data Luana rce(s) Supporting Document(s) SARS-CoV-2 (COVID-19) RNA [Presence] in Respiratory specimen by CLYDE with probe detection Not Detected [facility] This lab was ordered by [facility] and reported by [employer]. ID Date Data Source [id number] 02/02/2021 02:49:00 PM EDT [facility] ([facility]) Name Value Range Interpretation Code Description Data Luana rce(s) Supporting Document(s) Cholesterol [Mass/volume] in Serum or Plasma 160 mg/dL 131-200 [facility] ([facility]) Cholesterol in HDL [Mass/volume] in Serum or Plasma 46 mg/dL 35-60 [facility] ([facility]) Triglyceride [Mass/volume] in Serum or Plasma 44 mg/dL 30-150 [facility] ([facility]) Cholesterol in LDL [Mass/volume] in Serum or Plasma by calcu lation 105 CALC 50-159 [facility] ([facility]) ID Date Data Source [id number] 02/02/2021 02:49:00 PM EDT [facility] ([facility]) Name Value Range Interpretation Code Description Data Luana rce(s) Supporting Document(s) Glucose [Mass/volume] in Serum or Plasma 101 mg/dL 74-99 [facility] ([facility]) 100-125 mg/dL PRE-DIABETES/FASTING >126 mg/dL DIABETES/FASTING Creatinine 1.1 mg/dL 0.6-1.3 [facility] Urea nitrogen [Mass/volume] in Serum or Plasma 18 mg/dL 7-18 [facility] ([facility]) Sodium [Moles/volume] in Serum or Plasma 139 meq/L 136-145 [facility] ([facility]) Carbon dioxide, total [Moles/volume] in Serum or Plasma 33 meq/L 21 -32 [facility] ([facility]) Chloride [Moles/volume] in Serum or Plasma 103 meq/L 98-107 [facility] ([facility]) Potassium [Moles/volume] in Serum or Plasma 3.4 meq/L 3.5-5.1 [facility] ([facility]) NOTE: RESULT VERIFIED. Calcium [Mass/volume] in Serum or Plasma 8.5 mg/dL 8.5-10.1 [facility] ([facility]) Alkaline phosphatase isoenzyme [Units/volume] in Serum or Pl asma 82 mg/dL 46-116 [facility] ([facility]) Total Bilirubin 0.4 mg/dL 0.2-1.0 [facility] ([facility]) Albumin [Mass/volume] in Serum or Plasma 3.0 g/dL 3.4-5.0 [facility] ([facility]) Alanine aminotransferase [Enzymatic activity/volume] in Seru m or Plasma 21 U/L 12-78 [facility] ([facility]) Aspartate aminotransferase [Enzymatic activity/volume] in Serum or Plasma 16 U/L 15-37 [facility] ([facility] ) Proteinase 3 Ab [Units/volume] in Serum 6.9 g/dL 6.4-8.2 [facility] ([facility]) Glomerular filtration rate/1.73 sq M pre dicted among non-blacks [Volume Rate/Area] in Serum or Plasma by Creatinine-based formula (MDRD) Laboratory test result [facility] ([facility] ) A/G Ratio 0.77 CALC 1.00-1.90 [facility] ([facility] Glomerular filtration rate/1.73 sq M pre dicted among blacks [Volume Rate/Area] in Serum or Plasma by Creatinine-based formula (MDRD) Laboratory test result [facility] ([facility]) <content>CHRONIC KIDNEY DISEASE STAGING PER NKF</content>
<content></content>
<content>STAGE I & II GFR >= 60 NORMAL TO MILDLY DECREASED</content>
<content>STAGE III GFR 30-59 MODERATELY DECREASED</content>
<content>STAGE IV GFR 15-29 SEVERELY DECREASED</content>
<content>STAGE V GFR <15 VERY LITTLE GFR LEFT</content>
<content>ESRD GFR <15 ON EYE SURGEON</content>
<content></content> ID Date Data Source [id number] 02/02/2021 02:49:00 PM EDT [facility] ([facility]) Name Value Range Interpretation Code Description Data Luana rce(s) Supporting Document(s) Leukocytes [#/volume] in Blood by Automated count 8.9 x10*3/UL 4.1-10 .9 [facility] ([facility]) Erythrocytes [#/volume] in Blood by Automated count 4.92 x10*6/UL 4.2 0-6.30 [facility] ([facility]) Hemoglobin [Mass/volume] in Blood 15.2 g/dL 12.0-18.0 [facility] MCV 89.9 fL 80.0-97.0 [facility] ([facility]) Hematocrit [Volume Fraction] of Blood by Automated count 44.2 % 3 7.0-51.0 [facility] ([facility]) MCH 30.9 pg 26.0-32.0 [facility] ([facility]) MCHC 34.4 g/dL 31.0-38.0 [facility] ([facility]) Platelets [#/volume] in Blood by Automated count 295 x10*3/UL 140-440 [facility] Erythrocyte distribution width [Ratio] by Automated count 13.3 % 11.6-13.7 [facility] ([facility]) MPV 7.8 FL 7.8-11.0 [facility] ([facility]) Lymph % 32.0 % 10.0-58.5 [facility] ([facility] Mid % 8.1 % 1.7-9.3 [facility] ([facility] Mid # 0.8 x10*3/UL 0.1-0.6 [facility] ([facility]) Neut % 59.9 % 37.0-92.0 [facility] Lymph # 2.8 x10*3/UL 0.6-4.1 [facility] ([facility]) Neut # 5.3 x10*3/UL 2.0-7.8 [facility] ([facility]) ID Date Data Source [id number] 02/02/2021 02:48:00 PM EDT [facility] ([facility]) Name Value Range Interpretation Code Description Data Luana rce(s) Supporting Document(s) Prostate specific Ag [Mass/volume] in Serum or Plasma 2.92 ng/mL [facility] ([facility]) This assay was performed on the Siemens Dimension EXL using the B- Galactosidase/CPRG methodology and should not be compared interchangeably with other methods. The PSA should not be used alone as a screening test for the presence or absence of malignant disease. ID Date Data Source [id number] 09/16/2020 08:22:00 AM EDT [facility] Name Value Range Interpretation Code Description Data Luana rce(s) Supporting Document(s) Hemoglobin [Mass/volume] in Blood 14.6 g/dL 12.0-18.0 [facility] Leukocytes [#/volume] in Blood by Automated count 8.6 x10*3/UL 4.1-10 .9 [facility] ([facility]) Erythrocytes [#/volume] in Blood by Automated count 4.84 x10*6/UL 4.2 0-6.30 [facility] ([facility]) MCV 90.4 fL 80.0-97.0 [facility] ([facility]) Hematocrit [Volume Fraction] of Blood by Automated count 43.8 % 3 7.0-51.0 [facility] MCH 30.2 pg 26.0-32.0 [facility] ([facility]) MCHC 33.4 g/dL 31.0-38.0 [facility] ([facility]) Platelets [#/volume] in Blood by Automated count 292 x10*3/UL 140-440 [facility] ([facility]) Erythrocyte distribution width [Ratio] by Automated count 13.1 % 11.6-13.7 [facility] Lymph % 31.7 % 10.0-58.5 [facility] ([facility]) MPV 8.5 FL 7.8-11.0 [facility] ([facility]) Mid % 7.4 % 1.7-9.3 [facility] ([facility]) Neut % 60.9 % 37.0-92.0 [facility] ([facility]) Lymph # 2.7 x10*3/UL 0.6-4.1 [facility] ([facility]) Mid # 0.7 x10*3/UL 0.1-0.6 [facility] ([facility]) Neut # 5.2 x10*3/UL 2.0-7.8 [facility] ([facility]) ID Date Data Source [id number] 09/16/2020 08:22:00 AM EDT [facility] ([facility]) Name Value Range Interpretation Code Description Data Luana rce(s) Supporting Document(s) Calcidiol [Mass/volume] in Serum or Plasma 32.6 ng/mL 24.0-80.0 [facility] ([facility]) This test was performed using [employer] I P Vitamin D immunoassay kit. Values obtained with different assay methods should not be used interchangeably. ID Date Data Source [id number] 09/16/2020 08:21:00 AM EDT [facility] ([facility]) Name Value Range Interpretation Code Description Data Luana rce(s) Supporting Document(s) Cholesterol [Mass/volume] in Serum or Plasma 166 mg/dL 131-200 [facility] ([facility]) Triglyceride [Mass/volume] in Serum or Plasma 70 mg/dL 30-150 [facility] ([facility]) Cholesterol in LDL [Mass/volume] in Serum or Plasma by calcu lation 105 CALC 50-159 [facility] ([facility]) Cholesterol in HDL [Mass/volume] in Serum or Plasma 47 mg/dL 35-60 [facility] ([facility]) ID Date Data Source [id number] 09/16/2020 08:21:00 AM EDT [facility] ([facility]) Name Value Range Interpretation Code Description Data Luana rce(s) Supporting Document(s) Glucose [Mass/volume] in Serum or Plasma 98 mg/dL 74-99 [facility] ([facility]) 100-125 mg/dL PRE-DIABETES/FASTING >126 mg/dL DIABETES/FASTING Sodium [Moles/volume] in Serum or Plasma 138 meq/L 136-145 [facility] ([facility]) Creatinine 1.0 mg/dL 0.6-1.3 [facility] Urea nitrogen [Mass/volume] in Serum or Plasma 23 mg/dL 7-18 [facility] ([facility]) Potassium [Moles/volume] in Serum or Plasma 3.9 meq/L 3.5-5.1 [facility] ([facility]) Chloride [Moles/volume] in Serum or Plasma 101 meq/L 98-107 [facility] ([facility]) Carbon dioxide, total [Moles/volume] in Serum or Plasma 31 meq/L 21 -32 [facility] ([facility]) Total Bilirubin 0.4 mg/dL 0.2-1.0 [facility] ([facility]) Alkaline phosphatase isoenzyme [Units/volume] in Serum or Pl asma 78 mg/dL 46-116 [facility] ([facility]) Calcium [Mass/volume] in Serum or Plasma 8.9 mg/dL 8.5-10.1 [facility] ([facility]) Aspartate aminotransferase [Enzymatic activity/volume] in Serum or Plasma 15 U/L 15-37 [facility] ([facility] ) Alanine aminotransferase [Enzymatic activity/volume] in Seru m or Plasma 22 U/L 12-78 [facility] ([facility]) Albumin [Mass/volume] in Serum or Plasma 3.5 g/dL 3.4-5.0 [facility] ([facility]) Glomerular filtration rate/1.73 sq M pre dicted among non-blacks [Volume Rate/Area] in Serum or Plasma by Creatinine-based formula (MDRD) Laboratory test result [facility] Proteinase 3 Ab [Units/volume] in Serum 6.6 g/dL 6.4-8.2 [facility] A/G Ratio 1.13 CALC 1.00-1.90 [facility]) Glomerular filtration rate/1.73 sq M pre dicted among blacks [Volume Rate/Area] in Serum or Plasma by Creatinine-based formula (MDRD) Laboratory test result [facility] <content>CHRONIC KIDNEY DISEASE STAGING PER NKF</content>
<content></content>
<content>STAGE I & II GFR >= 60 NORMAL TO MILDLY DECREASED</content>
<content>STAGE III GFR 30-59 MODERATELY DECREASED</content>
<content>STAGE IV GFR 15-29 SEVERELY DECREASED</content>
<content>STAGE V GFR <15 VERY LITTLE GFR LEFT</content>
<content>ESRD GFR <15 ON EYE SURGEON</content>
<content></content> Procedure Social History Code Duration Value Status Description Data Source(s ) Smoking 01/05/2021 12:00:00 AM EDT Patient is a former smoker completed Patient is a former smoker [facility] ([facility]) Vital Signs ID Date Data Source UNK Name Value Range Interpretation Code Description Data Source(s) Intraocular pressure Right eye 9 mm[Hg] 9 mm[ Hg] [facility] ([facility]) Ap 10:16 Am Intraocular pressure Left eye 10 mm[Hg] 10 mm[ Hg] [facility] ([facility]) Ap 10:16 Am Body mass index (BMI) [Ratio] 27.3 kg/m2 27.3 k g/m2 [facility] ([facility]) Body height 70 [in_i] 70 [in_i] [facility] ([facility]) 5'10" Systolic blood pressure 128 mm[Hg] 128 mm[Hg] [facility] ([facility]) Diastolic blood pressure 74 mm[Hg] 74 mm[Hg] [facility] ([facility]) Heart rate 72 /min 72 /min [facility] ([facility]) Body weight 190.00 [lb_av] 190.00 [lb_av] [facility] ([facility]) Body height 71 [in_i] 71 [in_i] [facility] ([facility]) 5'11" Systolic blood pressure 102 mm[Hg] 102 mm[Hg] [facility] ([facility]) Body mass index (BMI) [Ratio] 26.1 kg/m2 26.1 k g/m2 [facility] ([facility]) [place] body weight 172 [lb_av] 172 [lb_av] [facility]) Body weight 84.823 kg 84.823 kg [facility] ([facility]) Body surface area Derived from formula 2.05 m2 2.05 m2 [facility] ([facility], ) Diastolic blood pressure 62 mm[Hg] 62 mm[Hg] [facility] ([facility], ) Body weight 187.00 [lb_av] 187.00 [lb_av] [facility] ([facility], ) Systolic blood pressure 110 mm[Hg] 110 mm[Hg] [facility] ([facility]) Diastolic blood pressure 60 mm[Hg] 60 mm[Hg] [facility] ([facility]) Heart rate 71 /min 71 /min [facility]) Body height 70 [in_i] 70 [in_i] [facility] ([facility]) 5'10" Body weight 191.12 [lb_av] 191.12 [lb_av] [facility] ([facility]) Oxygen saturation in Arterial blood by Pulse oximetry 96 % 96 % [facility] ([facility]) Air Body mass index (BMI) [Ratio] 27.4 kg/m2 27.4 k g/m2 [facility]) Intraocular pressure Right eye 10 mm[Hg] 10 mm [Hg] [facility] ([facility] ) Ap Intraocular pressure Left eye 12 mm[Hg] 12 mm[ Hg] [facility] ([facility] ) Ap 10:28 Am
--- OUTSIDE RECORDS SUMMARY | 2021-03-31 08:00 | CCD | Continuity of Care Document ---
Author Author Jr BRYANT M.D. Organization Unknown Address [address] [address] Phone [phone] Care Team Providers Care Bread Jockey Name Role Phone Clemente Bryant MD [facility] [phone] Problems Active Problems Provider Date Pericardial effusion [...] Given 01/21/2021 Influenza,Unspecified U-Flu Given 01/18/2020 Influenza,Unspecified 25609 Given 02/08/2017 Influenza Vaccin e Quadrivalent Preser/Antibiotic Free Im Use [id number] Q2037 Given 02/25/2016 Fluvirin Virus Vaccine 57926 01 U-Pneum Given 10/16/2014 Pneumococcal,Unspecified 90877 Given 02/09/2013 Influenza Virus Vaccine 93519 Given 02/02/2012 Influenza Virus Vaccine 67743 Given 12/24/2010 Influenza Virus Vaccine 21690 Given 2010 Pneumovax 23 02618 Given 01/27/2010 Influenza Virus Vaccine 30817 Given 07/15/2004 Adacel- Tetanus Diphtheria P ertussis [...] H/L Range Note Complete Blood Count 02/02/2021 [facility] [employer] nadege humphries Wrapper Operator: Dr Bill Amaya [place], [place] [id number] [phone] WBC 8.9 x10*3/UL 4.1 - 10.9 RBC [...] 2.0 - 7.8 Comprehensive Chem Profile 02/02/2021 [facility] nadege So Wrapper Operator: Dr Bill Amaya [place] [id number] [phone] Glucose 101 mg/dL High 74 - 99 [...] 60 mL/min >60 3 Lipid Profile 02/02/2021 [facility] , Wrapper Operator: Dr Bill Amaya [place] [id number] [phone] Cholesterol 160 mg/dL 131 - 200 Triglycerides 44 mg/dL 30 - 150 HDL Cholesterol 46 mg/dL 35 - 60 LDL (Calculated) 105 CALC 50 - 159 Laboratory test finding 02/02/2021 [facility] [employer] Worker isradha, Wrapper Operator: Dr Bill Amaya [place] [id number] [phone] PSA <pending> Laboratory test finding 09/16/2020 [facility] [employer] Worker sherine, Wrapper Operator: Dr Bill Amaya [place] [id number] [phone] Vitamin D 25-Hydroxy 32.6 ng/ml 24.0 - 80.0 4 Complete Blood Count 09/16/2020 [facility] [employer] s, pc Wrapper Operator: [place] [address] [phone] WBC 8.6 x10*3/UL 4.1 - 10.9 RBC [...] 2.0 - 7.8 Comprehensive Chem Profile 09/16/2020 [facility] basurto Wrapper Operator: [place] [address] [phone] Glucose 98 mg/dL 74 - 99 5 [...] 60 mL/min >60 6 Lipid Profile 09/16/2020 [facility] nadege Wrapper Operator: [place] [address] [phone] Cholesterol 166 mg/dL 131 - 200 Triglycerides [...] LITTLE GFR LEFT ESRD GFR <15 ON PROTOHISTORIAN 4 This test was performed [facility] Vitamin D immunoassay kit. Values obtained with [...] LITTLE GFR LEFT ESRD GFR <15 ON PROTOHISTORIAN Procedures Date Code Description Status 01/01/2021 [id number] Diabetic Retinal Eye Exam Comple brissa 09/16/2020 46864 Office/Outpatient Established Mo d MDM 30-39 Min Completed 07/03/2020 [id number] Diabetic Retinal Eye Exam Comple brissa 12/29/2018 [id number] Diabetic Retinal Eye Exam Comple brissa 09/13/2018 [id number] Diabetic Retinal Eye Exam Comple brissa 08/17/2018 [id number] Diabetic Retinal Eye Exam Comple brissa 11/23/2017 [id number] Diabetic Retinal Eye Exam Comple brissa 09/01/2015 [id number] Diabetic Retinal Eye Exam Comple brissa 12/05/2014 [id number] Colonoscopy Completed 10/22/2011 [id number] Colonoscopy Completed Medical Devices Description No Information Available Encounters Type Date Location Provider Dx Diagnosis Office Visit 09/16/2020 1:30p [facility] Clemente Bryant M.D. E78.5 Hyperlipidemia, [...] wit hout lower urinary tract sym Clemente rByant M.D. 09/16/2020 F41.9 Anxiety disorder, unspecified Gadiel Bryant M.D. 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 09/16/2020 E55.9 Vitamin D deficiency, unspecifie d Clemente Bryant M.D. 09/16/2020 H40.9 Unspecified glaucoma Clemente rod M.D. Plan of Treatment Future Appointment(s):* 08/05/2021 9:30 am - [facility] 02/02/2021 - Clemente Bryant M.D.* * [...]
--- OUTSIDE RECORDS SUMMARY | 2021-03-31 08:00 | CCD | Continuity of Care Document ---
Author Author Jr BRYANT M.D. Organization Unknown Address [address] [address] Phone [phone] Care Team Providers Care Director Operating Room Name Role Phone Clemente Bryant MD [facility] [phone] Problems Active Problems Provider Date Pericardial effusion [...] both eyes every night at bedtime Clemente Brynat M.D. 10/08/2016 Potassium Chloride ER 10Meq Tablet [...] Vaccine Lot # U-Flu Given 01/18/2020 Influenza,Unspecified 23929 Given 02/08/2017 Influenza Vaccin e Quadrivalent Preser/Antibiotic Free Im Use [id number] Q2037 Given 02/25/2016 Fluvirin Virus Vaccine 19029 01 U-Pneum Given 10/16/2014 Pneumococcal,Unspecified 39179 Given 02/09/2013 Influenza Virus Vaccine 25177 Given 02/02/2012 Influenza Virus Vaccine 45464 Given 12/24/2010 Influenza Virus Vaccine 23506 Given 2010 Pneumovax 23 22328 Given 01/27/2010 Influenza Virus Vaccine 90182 Given 07/15/2004 Adacel- Tetanus Diphtheria P ertussis Vital Signs Date Vital Result Comment 09/16/2020 [...] H/L Range Note Laboratory test finding 09/16/2020 [place] [employer]orklift Operator nadege basurto [address]: Dr Bill Amaya [place], [place] [id number] [phone] Vitamin D 25-Hydroxy 32.6 ng/ml 24.0 - 80.0 1 Complete Blood Count 09/16/2020 [place] nadege Guzman [address] Railway: Dr Bill Amaya [place], [place] [id number] [phone] WBC 8.6 x10*3/UL 4.1 - 10.9 RBC [...] 2.0 - 7.8 Comprehensive Chem Profile 09/16/2020 [place] nadege So [address] Railway: [place] [address] [phone] Glucose 98 mg/dL 74 - 99 2 [...] 60 mL/min >60 3 Lipid Profile 09/16/2020 [facility] [address]: [place] [address] [phone] Cholesterol 166 mg/dL 131 - 200 Triglycerides 70 mg/dL 30 - 150 HDL Cholesterol 47 mg/dL 35 - 60 LDL (Calculated) 105 CALC 50 - 159 1 This test was performed [employer] ? Vitamin D immunoassay kit. Values obtained with [...] LITTLE GFR LEFT ESRD GFR <15 ON UNEMPLOYMENT INSURANCE DIRECTOR Procedures Date Code Description Status 01/01/2021 [id number] Diabetic Retinal Eye Exam [facility] 09/16/2020 71609 Office/Outpatient Established Mo d MDM 30-39 Min Completed 07/03/2020 [id number] Diabetic Retinal Eye Exam [facility] 12/29/2018 [id number] Diabetic Retinal Eye Exam [facility]ple [facility] 09/13/2018 [id number] Diabetic Retinal Eye Exam Comple [facility] 08/17/2018 [id number] Diabetic Retinal Eye Exam Comple brissa 11/23/2017 [id number] Diabetic Retinal Eye Exam [facility]ple [facility] 09/01/2015 [id number] Diabetic Retinal Eye Exam Comple [facility] 12/05/2014 [id number] Colonoscopy Completed 10/22/2011 [id number] Colonoscopy Completed Medical Devices Description No Information Available Encounters Type Date Location Provider Dx Diagnosis Office Visit 09/16/2020 1:30p [facility] Clemente Bryant M.D. E78.5 Hyperlipidemia, [...] 3:00 pm - Clemente Bryant M.D. at [facility] 09/16/2020 - Clemente Bryant M.D.* [...]
[2021-03-31] MEDS ORDERED: LIDOCAINE 2% 100MG/5ML SDV (FOR ANES.) As Ordered ONE (11:20)
[2021-03-31] MEDS ORDERED: propofoL 200 MG/20 ML VIAL As Ordered ONE ×2 (11:20→11:35)
--- NOTE | 2021-03-31 11:28 | ROOR ---
Patient Name: Jr Magaña Procedure Date: 03/31/2021 10:59 AM Date of : 1945 Age: 76 Room: [facility] Gender: Male Note Status: Finalized Procedure: Colonoscopy Indications: High risk colon cancer surveillance: Personal history of colonic polyps Providers: Jr Leonardo MD Referring MD: Clemente Bain MD Requesting Provider: Medicines: Monitored Anesthesia Care Complications: No immediate complications. Procedure: Pre-Anesthesia Assessment: - The heart rate, respiratory rate, oxygen saturations, blood pressure, adequacy of pulmonary ventilation, and response to care were monitored throughout the procedure. The Colonoscope was introduced through the anus and advanced to 10 cm into the ileum. The colonoscopy was performed without difficulty. The patient tolerated the procedure well. The quality of the bowel preparation was good. Findings: The perianal and digital rectal examinations were normal. Two sessile polyps were found in the sigmoid colon and hepatic flexure. The polyps were 4 to 5 mm in size. These polyps were removed with a cold snare. Resection and retrieval were complete. Mild sigmoid diverticulosis and small internal hemorrhoids. The terminal ileum appeared normal. (the previously seen inflammation/erosions are not seen) Impression: - Two 4 to 5 mm polyps in the sigmoid colon and at the hepatic flexure, removed with a cold snare. Resected and retrieved. - Mild sigmoid diverticulosis and small internal hemorrhoids. - The colon is otherwise normal. - The examined portion of the ileum was normal. Recommendation: - Repeat colonoscopy is not recommended for surveillance. Procedure Code(s): --- Professional --- 51531, Colonoscopy, flexible; with removal of tumor(s), polyp(s), or other lesion(s) by snare technique Diagnosis Code(s): --- Professional --- K63.5, Polyp of colon Z86.010, Personal history of colonic polyps CPT copyright 2019 [employer]. All rights reserved. The codes documented in this report are preliminary and upon hull drafter review may be revised to meet current compliance requirements. Jr Leonardo MD Jr Leonardo MD 03/31/2021 11:27:31 AM Electronically signed by Jr Leonardo MD Number of Addenda: 0 Note Initiated On: 03/31/2021 10:59 AM Estimated Blood Loss: Estimated blood loss: none.
[2021-03-31 11:45] VITALS: BP 111/62
== END 2021-03-31 11:52 | disposition home or self-care (01) ==
LOC: M OPP 07:54
PROVIDERS: ATTEND Internal Medicine Gastroenterology
DX: Z12.11 Encounter for screening for malignant neoplasm of colon (principal); Z86.010 Personal history of colon polyps; K63.5 Polyp of colon; K57.30 Diverticulosis of large intestine without perforation or abscess without bleeding; K64.8 Other hemorrhoids; Z79.82 Long term (current) use of aspirin; Z79.899 Other long term (current) drug therapy; Z88.8 Allergy status to other drugs, medicaments and biological substances; Z85.6 Personal history of leukemia; J44.9 Chronic obstructive pulmonary disease, unspecified

== ENCOUNTER → 2021-05-06 | Outpatient (CLI) | payer MEDICARE, OTHER ==
[~2021-05-06] MED LIST changes: +LOSA100T45 PO; -LOSA100T50 PO; +LOSA25TA13 PO; -LOSA25TA14 PO; -NS 1,000 ML IV ONE; +POTA-149 PO; -POTA10TA16 PO
== END ==
LOC: M RAD 12:38
PROVIDERS: ATTEND Physician Assistant Medical
DX: R19.8 Other specified symptoms and signs involving the digestive system and abdomen (principal); R14.3 Flatulence

== ENCOUNTER → 2021-05-07 | Outpatient (CLI) | payer MEDICARE, OTHER ==
[2021-05-07 14:34] LABS: BLOOD UREA NITROGEN 17 MG/DL (7-18); CREATININE FOR GFR 0.98 MG/DL (0.70-1.30); GLOMERULAR FILTRATION RATE > 60.0 (>42)
== END ==
LOC: M PLALAB 09:41
PROVIDERS: ATTEND Physician Assistant Medical
DX: R93.3 Abnormal findings on diagnostic imaging of other parts of digestive tract (principal)

== ENCOUNTER → 2021-05-22 | Outpatient (CLI) | payer MEDICARE, OTHER ==
[~2021-05-22] MED LIST changes: +E-Z-PAQUE 96% w/w SUSP 176GM BTL As Ordered ONE
== END ==
LOC: M RAD 09:01
PROVIDERS: ATTEND Physician Assistant Medical
DX: R93.3 Abnormal findings on diagnostic imaging of other parts of digestive tract (principal)

== ENCOUNTER → 2021-06-03 | Outpatient (CLI) | payer MEDICARE, OTHER ==
[~2021-06-03] MED LIST changes: -E-Z-PAQUE 96% w/w SUSP 176GM BTL As Ordered ONE
== END ==
LOC: M RAD 08:31
PROVIDERS: ATTEND Family Medicine
DX: R91.8 Other nonspecific abnormal finding of lung field (principal); F17.211 Nicotine dependence, cigarettes, in remission

== ENCOUNTER → 2021-06-30 | Outpatient (REF) | payer MEDICARE, OTHER | LOC: M LAB REF 11:13 | PROVIDERS: ATTEND Internal Medicine Gastroenterology | DX: R19.4 Change in bowel habit (principal) ==

== ENCOUNTER 2021-09-29 13:36 | Inpatient (IN) | payer MEDICARE, OTHER ==
[~2021-09-29] VITALS: Ht 180.3 cm; Wt 81.4 kg
[2021-09-29] MEDS ORDERED: methylPREDNISolone 125MG 2ML VIAL IV ONE (14:45)
[2021-09-29] MEDS ORDERED: AZITHROMYCIN INJ 500 MG, VIAL MATE ADAPTER 1 EACH in NS 250 ML IV ONE (14:50)
[2021-09-29] MEDS ORDERED: cefTRIAXone SOD 2 GM in D5W MINI-BAG PLUS 50 ML IV ONE (14:50)
[2021-09-29] MEDS: COMBIVENT RESPIMAT 100-20MCG INHALER 4GM INH SCH ×2 (15:00→16:08)
[2021-09-29 15:10] LABS: VENOUS BASE EXCESS 2.7 (-2.0-2.0); VENOUS HCO3 29.2 MEQ/L (23.0-27.0); VENOUS O2 SATURATION 79.4 % (60.0-80.0); VENOUS PARTIAL PRESSURE O2 43.6 mmHg (30.0-50.0); VENOUS PH 7.375 UNITS (7.330-7.430); VENOUS STANDARD HCO3 26.3 MEQ/L; VENOUS TOTAL CO2 30.7 MEQ/L (24.0-28.0)
[2021-09-29 15:15] LABS: BASO # 0.1 10^3/uL (0.0-0.2); BASO % 0.4 % (0.0-1.0); EOS # 0.2 10^3/uL (0.0-0.5); EOS % 1.4 % (0.0-3.0); HEMATOCRIT 47.8 % (42.0-52.0); HEMOGLOBIN 16.2 g/dl (13.5-17.5); LYMPH # 2.4 10^3/uL (1.5-5.0); LYMPH % 18.6 % (24.0-44.0); MEAN CORPUSCULAR HEMOGLOBIN 30.5 pg (27.0-33.0); MEAN CORPUSCULAR HGB CONC 33.9 g/dl (32.0-36.5); MONO # 1.3 10^3/uL (0.0-0.8); MONO % 10.1 % (2.0-8.0); PLATELET COUNT, AUTOMATED 382 10^3/uL (150-450); RED BLOOD COUNT 5.31 10^6/uL (4.30-6.10); WHITE BLOOD COUNT 13.1 10^3/uL (4.0-10.0)
[2021-09-29 15:47] LABS: ALT/SGPT 22 U/L (12-78); BILIRUBIN,DIRECT < 0.1 MG/DL (0.0-0.2); BILIRUBIN,TOTAL 0.5 MG/DL (0.2-1.0); BLOOD UREA NITROGEN 20 MG/DL (7-18); CALCIUM LEVEL 8.8 MG/DL (8.8-10.2); CARBON DIOXIDE LEVEL 31 MEQ/L (21-32); CHLORIDE LEVEL 101 MEQ/L (98-107); CREATININE FOR GFR 0.89 MG/DL (0.70-1.30); GLOMERULAR FILTRATION RATE > 60.0 (>42); GLUCOSE, FASTING 106 MG/DL (70-100); POTASSIUM SERUM 5.4 MEQ/L (3.5-5.1); SODIUM LEVEL 135 MEQ/L (136-145); TOTAL PROTEIN 6.9 GM/DL (6.4-8.2)
[2021-09-29 15:48] LABS: NT-PRO BNP 178 PG/ML (<450)
[2021-09-29] MEDS ORDERED: HOME MED LIST COMPLETE! XX SCH (16:30)
[2021-09-29] MEDS ORDERED: EXCETAB32 PO (16:33)
[2021-09-29] MEDS ORDERED: FLUID PLACE HOLDER IV SCH (17:55)
[2021-09-29] MEDS ORDERED: ACETAMINOPHEN TAB 650MG DOSE (2X325MG) PO PRN (17:55)
[2021-09-29] MEDS ORDERED: EXCEDRIN MIGRAINE TABLET PO PRN (17:55)
[2021-09-29] MEDS ORDERED: VANCOMYCIN HCL IV SCH (17:55)
[2021-09-29] MEDS ORDERED: MOM 30ML SUSPENSION UDC PO PRN (17:55)
[2021-09-29 19:55] VITALS: BP 143/83
[2021-09-29] MEDS: ENOXAPARIN 40MG/0.4ML SYRINGE (J1650 PER 10MG) SC SCH (20:30)
[2021-09-29] MEDS: PIPERACILLIN/TAZOBACTAM SOD 4.5 GM in D5W MINI-BAG PLUS 100 ML IV SCH (20:30)
[2021-09-29] MEDS: IPRATROPIUM 0.5MG/ALBUTEROL 2.5MG INH SOL UD 3ML (DUONEB) NEB SCH (20:56)
[2021-09-29] MEDS ORDERED: VANCOMYCIN HCL 1,000 MG, VIAL MATE ADAPTER 1 EACH in NS 250 ML IV ONE (21:00)
[2021-09-29] MEDS ORDERED: ENTER DRUG NAME HERE (PATIENT'S OWN MED) OU SCH (21:00)
[2021-09-29 22:00] VITALS: BP 143/83
[2021-09-29] MEDS ORDERED: VANCOMYCIN HCL 750 MG, VIAL MATE ADAPTER 1 EACH in NS 250 ML IV ONE (22:00)
[2021-09-29] MEDS: BRIMONIDINE 0.15% OPHTH SOLN 5 ML OD SCH (23:19)
[2021-09-29] MEDS: LATANOPROST 0.005% OPHTH SOLN 2.5 ML OU SCH (23:19)
[2021-09-29] MEDS: TIMOLOL MALEATE 0.5% OPHTH SOLN 5 ML OD SCH (23:19)
[2021-09-29] MEDS: DORZOLAMIDE 2% OPHTH SOLN 10 ML BTL OD SCH (23:19)
[2021-09-30] MEDS: IPRATROPIUM 0.5MG/ALBUTEROL 2.5MG INH SOL UD 3ML (DUONEB) NEB SCH ×4 (02:00→19:22)
[2021-09-30] MEDS: PIPERACILLIN/TAZOBACTAM SOD 4.5 GM in D5W MINI-BAG PLUS 100 ML IV SCH ×3 (02:42→14:41)
[2021-09-30] MEDS ORDERED: VANCOMYCIN HCL 1,000 MG, VIAL MATE ADAPTER 1 EACH in NS 250 ML IV SCH (05:00)
[2021-09-30 06:00] VITALS: BP 131/83
[2021-09-30 06:30] LABS: HEMATOCRIT 45.8 % (42.0-52.0); HEMOGLOBIN 15.4 g/dl (13.5-17.5); MEAN CORPUSCULAR HEMOGLOBIN 30.1 pg (27.0-33.0); MEAN CORPUSCULAR HGB CONC 33.6 g/dl (32.0-36.5); MEAN CORPUSCULAR VOLUME 89.6 fl (80.0-96.0); PLATELET COUNT, AUTOMATED 385 10^3/uL (150-450); RED BLOOD COUNT 5.11 10^6/uL (4.30-6.10); WHITE BLOOD COUNT 12.1 10^3/uL (4.0-10.0)
[2021-09-30 06:59] LABS: BLOOD UREA NITROGEN 23 MG/DL (7-18); CARBON DIOXIDE LEVEL 30 MEQ/L (21-32); CHLORIDE LEVEL 102 MEQ/L (98-107); GLOMERULAR FILTRATION RATE > 60.0 (>42); GLUCOSE, FASTING 130 MG/DL (70-100); MAGNESIUM LEVEL 1.8 MG/DL (1.8-2.4); SODIUM LEVEL 139 MEQ/L (136-145)
[2021-09-30] MEDS: ASPIRIN 81MG ENTERIC TABLET PO SCH (08:45)
[2021-09-30] MEDS: CYANOCOBALAMIN 500 MCG TAB PO SCH (08:45)
[2021-09-30] MEDS: MAGNESIUM OXIDE 400MG TAB (MAG-OX) PO SCH (08:46)
[2021-09-30] MEDS: CHLORTHALIDONE 25 MG TAB PO SCH (08:46)
[2021-09-30] MEDS: OCUVITE 1 TAB PO SCH (08:46)
[2021-09-30] MEDS: ESCITALOPRAM OXALATE 10 MG TAB (LEXAPRO) PO SCH (08:46)
[2021-09-30] MEDS: TAMSULOSIN 0.4 MG CAP PO SCH (08:46)
[2021-09-30 08:50] VITALS: BP 140/86
[2021-09-30] MEDS: LOSARTAN 25 MG TAB PO SCH (08:50)
[2021-09-30] MEDS: DORZOLAMIDE 2% OPHTH SOLN 10 ML BTL OD SCH ×3 (08:51→20:17)
[2021-09-30] MEDS: BRIMONIDINE 0.15% OPHTH SOLN 5 ML OD SCH ×2 (08:51→20:17)
[2021-09-30] MEDS: TIMOLOL MALEATE 0.5% OPHTH SOLN 5 ML OD SCH ×2 (08:51→20:16)
[2021-09-30] MEDS ORDERED: POTASSIUM CHLORIDE 10MEQ SR TABLET PO SCH (09:00)
[2021-09-30 13:53] LABS: PH BODY FLUID 7.431 UNITS (NOT ESTABLISHED); SOURCE, BODY FLUID pH PLEURAL
[2021-09-30 14:00] VITALS: BP 134/72
[2021-09-30 14:17] LABS: SOURCE, BODY FLUID PLEURAL
[2021-09-30 14:18] LABS: APPEARANCE, BODY FLUID HAZY (CLEAR); PLEURAL FL COLOR YELLOW (COLORLESS)
[2021-09-30 14:38] LABS: LDH, BODY FLUID 1043 U/L (NOT ESTABLISHED); SOURCE, BODY FLUID GLUCOSE PLEURAL; SOURCE, BODY FLUID LDH PLEURAL; SOURCE, BODY FLUID TOT PROTEIN PLEURAL; TOTAL PROTEIN, BODY FLUID 3.2 G/DL (NOT ESTABLISHED)
[2021-09-30 15:20] VITALS: BP 110/63
[2021-09-30] MEDS: PIPERACILLIN/TAZOBACTAM SOD 4.5 GM in D5W MINI-BAG PLUS 50 ML IV SCH (20:16)
[2021-09-30] MEDS: ENOXAPARIN 40MG/0.4ML SYRINGE (J1650 PER 10MG) SC SCH (20:16)
[2021-09-30] MEDS: LATANOPROST 0.005% OPHTH SOLN 2.5 ML OU SCH (20:17)
[2021-09-30 22:00] VITALS: BP 114/66
[2021-10-01] MEDS: PIPERACILLIN/TAZOBACTAM SOD 4.5 GM in D5W MINI-BAG PLUS 50 ML IV SCH ×2 (01:38→08:03)
[2021-10-01] MEDS: IPRATROPIUM 0.5MG/ALBUTEROL 2.5MG INH SOL UD 3ML (DUONEB) NEB SCH ×3 (01:52→14:22)
[2021-10-01 05:54] LABS: HEMOGLOBIN 14.8 g/dl (13.5-17.5); MEAN CORPUSCULAR HEMOGLOBIN 30.7 pg (27.0-33.0); MEAN CORPUSCULAR HGB CONC 34.4 g/dl (32.0-36.5); MEAN CORPUSCULAR VOLUME 89.2 fl (80.0-96.0); PLATELET COUNT, AUTOMATED 377 10^3/uL (150-450); RED BLOOD COUNT 4.82 10^6/uL (4.30-6.10); WHITE BLOOD COUNT 15.5 10^3/uL (4.0-10.0)
[2021-10-01 06:00] VITALS: BP 120/68
[2021-10-01 06:16] LABS: BLOOD UREA NITROGEN 21 MG/DL (7-18); CALCIUM LEVEL 8.5 MG/DL (8.8-10.2); CARBON DIOXIDE LEVEL 29 MEQ/L (21-32); CHLORIDE LEVEL 102 MEQ/L (98-107); CREATININE FOR GFR 0.93 MG/DL (0.70-1.30); GLOMERULAR FILTRATION RATE > 60.0 (>42); GLUCOSE, FASTING 101 MG/DL (70-100); POTASSIUM SERUM 3.1 MEQ/L (3.5-5.1); SODIUM LEVEL 140 MEQ/L (136-145)
[2021-10-01] MEDS: MAGNESIUM OXIDE 400MG TAB (MAG-OX) PO SCH (08:03)
[2021-10-01] MEDS: CYANOCOBALAMIN 500 MCG TAB PO SCH (08:03)
[2021-10-01] MEDS: TAMSULOSIN 0.4 MG CAP PO SCH (08:03)
[2021-10-01] MEDS: CHLORTHALIDONE 25 MG TAB PO SCH (08:03)
[2021-10-01] MEDS: ESCITALOPRAM OXALATE 10 MG TAB (LEXAPRO) PO SCH (08:03)
[2021-10-01] MEDS: ASPIRIN 81MG ENTERIC TABLET PO SCH (08:03)
[2021-10-01] MEDS: OCUVITE 1 TAB PO SCH (08:03)
[2021-10-01] MEDS: TIMOLOL MALEATE 0.5% OPHTH SOLN 5 ML OD SCH (08:04)
[2021-10-01] MEDS: BRIMONIDINE 0.15% OPHTH SOLN 5 ML OD SCH (08:04)
[2021-10-01] MEDS: DORZOLAMIDE 2% OPHTH SOLN 10 ML BTL OD SCH (08:04)
[2021-10-01] MEDS: LOSARTAN 25 MG TAB PO SCH (08:04)
[2021-10-01] MEDS ORDERED: LEVO750T13 PO (11:02)
[2021-10-01 17:07] LABS: MYCOPLASMA PNEUMONIAE IgG 1491 U/mL (0-99); MYCOPLASMA PNEUMONIAE IgM <770 U/mL (0-769)
[2021-10-02 16:08] LABS: BODY FLUID CULTURE Not indicated. (.); LEGIONELLA ANTIGEN URINE Negative (Negative); ORGANISM ID Not indicated. (.); SPECIMEN SOURCE Urine (.); URINE STREP PNEUMONIAE ANTIGEN Negative (Negative)
== END 2021-10-01 15:50 | disposition home or self-care (01) | DRG 193 ==
LOC: M ED 13:36 → M ED INP 17:53 → M MSPAV 19:49
PROVIDERS: ADMIT Internal Medicine; ATTEND Internal Medicine
PROC: 0W993ZZ Drainage of Right Pleural Cavity, Percutaneous Approach (ICD-10-PCS; principal; 2021-09-30 13:00)
DX: J18.9 Pneumonia, unspecified organism (principal); J96.01 Acute respiratory failure with hypoxia; C34.11 Malignant neoplasm of upper lobe, right bronchus or lung; J91.0 Malignant pleural effusion; C91.10 Chronic lymphocytic leukemia of B-cell type not having achieved remission; I10 Essential (primary) hypertension; F32.A Depression, unspecified; J44.9 Chronic obstructive pulmonary disease, unspecified; R63.4 Abnormal weight loss; K21.9 Gastro-esophageal reflux disease without esophagitis; N40.0 Benign prostatic hyperplasia without lower urinary tract symptoms; H40.9 Unspecified glaucoma; E78.5 Hyperlipidemia, unspecified; H35.30 Unspecified macular degeneration; Z79.899 Other long term (current) drug therapy; Z79.82 Long term (current) use of aspirin; Z89.422 Acquired absence of other left toe(s); Z87.891 Personal history of nicotine dependence

== ENCOUNTER → 2021-10-08 | Outpatient (CLI) | payer MEDICARE, OTHER ==
[~2021-10-08] MED LIST changes: +EXCETAB32 PO; +LEVO750T13 PO
== END ==
LOC: M RAD 13:26
PROVIDERS: ATTEND Internal Medicine Pulmonary Disease
DX: M79.605 Pain in left leg (principal)

== ENCOUNTER → 2021-10-15 | Outpatient (REF) | payer MEDICARE, OTHER ==
[~2021-10-15] MED LIST changes: +ALBU2.5V10; +BUDE10.7
== END ==
LOC: M LAB REF 11:43
PROVIDERS: ATTEND Internal Medicine
DX: R19.7 Diarrhea, unspecified (principal)

== ENCOUNTER → 2021-10-18 | Outpatient (CLI) | payer MEDICARE, OTHER | LOC: M LABSMTC 11:32 | PROVIDERS: ATTEND Anesthesiology | DX: Z01.812 Encounter for preprocedural laboratory examination (principal); Z20.822 Contact with and (suspected) exposure to COVID-19 ==

== ENCOUNTER → 2021-10-19 | Outpatient (CLI) | payer MEDICARE, OTHER ==
[~2021-10-19] MED LIST changes: +ACETAMINOPHEN 325 MG TAB As Ordered ONE; +ACETAMINOPHEN TAB 650MG DOSE (2X325MG) PO PRN
[2021-10-19 15:00] VITALS: BP 116/59
== END ==
LOC: M IRPRO 11:39
PROVIDERS: ATTEND Specialist
DX: C34.90 Malignant neoplasm of unspecified part of unspecified bronchus or lung (principal); J91.0 Malignant pleural effusion

== ENCOUNTER → 2021-10-22 | Outpatient (CLI) | payer MEDICARE, OTHER ==
[~2021-10-22] MED LIST changes: -ACETAMINOPHEN 325 MG TAB As Ordered ONE; -ACETAMINOPHEN TAB 650MG DOSE (2X325MG) PO PRN; +COMB0.2S OU; +FOLI1TAB11 PO; +LIDOCAINE 1% MDV 20ML VIAL As Ordered ONE; +MIDAZOLAM INJ 2MG/2ML VIAL (J2250 PER 1MG) As Ordered ONE; +NS 1,000 ML IV SCH; +ONDA8TAB8 PO; +PROC10TA5 PO; +REME15TA2 PO; +ceFAZolin 2 GM/D5W 50 ML IV BAG (J0690 PER 500MG) As Ordered ONE; +ceFAZolin SOD 2 GM in IV 1 EA IV ONE; +diphenhydrAMINE 50MG/ML VIAL (J1200) As Ordered ONE; +fentaNYL 100 MCG/2 ML INJECTION As Ordered ONE
[2021-10-22 11:30] VITALS: BP 110/61
== END ==
LOC: M IRPRO 08:16
PROVIDERS: ATTEND Specialist
DX: C79.9 Secondary malignant neoplasm of unspecified site (principal); C34.90 Malignant neoplasm of unspecified part of unspecified bronchus or lung
CPT/HCPCS: 36561; 99152; 99153; C1769; C1788; C1894; J0690; J1200; J1642; J1644; J2250; J3010

== ENCOUNTER 2021-10-29 13:00 | Day surgery (SDC) | payer MEDICARE, OTHER ==
[~2021-10-29] VITALS: Ht 180.3 cm; Wt 77.1 kg
[~2021-10-29 13:00] MED LIST changes: +MUPIROCIN 2% OINT 22 GM TUBE TOP ONE; +NS 1,000 ML IV SCH; +ceFAZolin SOD 2 GM in IV 1 EA IV ONE
[2021-10-29] MEDS ORDERED: BUPIVACAINE LIPOSOME/PF 1.3% 20ML VIAL (13.3MG/ML)(EXPAREL) As Ordered ONE (13:28)
[2021-10-29] MEDS ORDERED: BUPIVACAINE HCL 0.5% 30ML VIAL As Ordered ONE (13:29)
[2021-10-29] MEDS ORDERED: MIDAZOLAM INJ 2MG/2ML VIAL (J2250 PER 1MG) As Ordered ONE (13:50)
[2021-10-29] MEDS ORDERED: LIDOCAINE 1% MDV 20ML VIAL As Ordered ONE ×2 (13:50→14:19)
[2021-10-29] MEDS ORDERED: MIDAZOLAM INJ 2MG/2ML VIAL (J2250 PER 1MG) IV ONE (15:25)
[2021-10-29 16:00] VITALS: BP 138/79
== END 2021-10-29 16:17 | disposition home or self-care (01) ==
LOC: M OPP 13:00
PROVIDERS: ATTEND Thoracic Surgery (Cardiothoracic Vascular Surgery)
DX: C34.91 Malignant neoplasm of unspecified part of right bronchus or lung (principal); J91.0 Malignant pleural effusion; J44.9 Chronic obstructive pulmonary disease, unspecified; K76.89 Other specified diseases of liver; Z90.49 Acquired absence of other specified parts of digestive tract
CPT/HCPCS: 32550; 71045; 71250; 87428; A7048; J0690; J2250

== ENCOUNTER → 2021-10-29 | Outpatient (CLI) | payer MEDICARE, OTHER ==
[~2021-10-29] MED LIST changes: +FURO40TA2 PO; -LIDOCAINE 1% MDV 20ML VIAL As Ordered ONE; -MIDAZOLAM INJ 2MG/2ML VIAL (J2250 PER 1MG) As Ordered ONE; -NS 1,000 ML IV SCH; -ceFAZolin 2 GM/D5W 50 ML IV BAG (J0690 PER 500MG) As Ordered ONE; -ceFAZolin SOD 2 GM in IV 1 EA IV ONE; -diphenhydrAMINE 50MG/ML VIAL (J1200) As Ordered ONE; -fentaNYL 100 MCG/2 ML INJECTION As Ordered ONE
== END ==
LOC: M RAD 12:02
PROVIDERS: ATTEND Internal Medicine Pulmonary Disease
DX: C34.91 Malignant neoplasm of unspecified part of right bronchus or lung (principal); J91.0 Malignant pleural effusion; J44.9 Chronic obstructive pulmonary disease, unspecified; K76.89 Other specified diseases of liver; Z90.49 Acquired absence of other specified parts of digestive tract